=== PATIENT | female | born 1995 | race Caucasian/White ===

== ENCOUNTER → 2017-12-27 12:05 | Outpatient (CLI) | payer OTHER, SELFPAY ==
--- NOTE | 2017-12-27 12:14 | DI.US.S_ITS ---
PROCEDURE: US PELVIC COMPLETE INDICATIONS: FOLLOW-UP OVARIAN CYST TECHNIQUE: Real-time scanning was performed of the pelvic organs, with image documentation. Additional endovaginal scanning was necessary due to incomplete visualization of the adnexal and endometrial structures by transabdominal scanning. COMPARISON: Outside Facility, , US PELVIC, 09/10/2016, 13:13. [facility], , US PELVIC COMPLETE, 11/20/2017, 10:18. FINDINGS: Transabdominal scanning: Limited scanning through the kidneys shows no hydronephrosis. No pathologic free abdominal or pelvic fluid. Endovaginal scanning: Uterus: Uterus is normal in size at 7.1 x 3.5 x 5.2 cm. The endometrium measures 4.5 mm in combined thickness. IUD in expected position. Ovaries: Normal bilaterally and the previously visualized left complex ovarian cyst has resolved. IMPRESSION: Resolved complex left ovarian cyst. Dictated by: Arcenio Prince [facility] Interpreted: Rashel Ramirez MD on 12/27/2017 at 13:27 Approved by: Rashel Ramirez M.D. on 12/27/2017 at 14:18
== END ==
PROVIDERS: PCP Family Medicine; Visit Provider Family Medicine
DX: N83.292 Other ovarian cyst, left side (principal)
CPT/HCPCS: 76856

== ENCOUNTER → 2018-05-29 10:03 | Outpatient (CLI) | payer OTHER, SELFPAY ==
[2018-05-29 11:41] LABS: Add Manual Diff / Slide Review NO; Basophils Percent Auto 0.3 % (0-2); Hematocrit 38.2 % (36-46); Lymphocytes Percent Auto 22.2 % (25-40); Mean Corpuscular Hemoglobin 30.7 PG (26-34); Mean Corpuscular Volume 90.3 fL (80-100); Monocytes Percent Auto 6.1 % (3-14); Neutrophils Absolute Auto 4500 /uL (3000-5900); Neutrophils Percent Auto 67.4 % (50-75); Platelet Count 244 X10^3/uL (150-400); Red Blood Cell Count 4.23 X10^6/uL (4.0-5.2); Red Cell Distribution Width 12.4 % (11.6-14.8); White Blood Cell Count 6.6 X10^3/uL (4.5-11.0)
[2018-05-29 13:51] LABS: TSH w/ Reflex to FT4 1.41 uIU/mL (0.47-4.68)
== END ==
PROVIDERS: PCP Family Medicine; Visit Provider Family Medicine
DX: R53.83 Other fatigue (principal); R68.89 Other general symptoms and signs
CPT/HCPCS: 36415; 84443; 85025

== ENCOUNTER → 2018-11-05 18:22 | Outpatient (REF) | payer OTHER, SELFPAY ==
[2018-11-05 20:29] LABS: Urine N gonorrhoeae NOT DETECTED
[2018-11-05 20:56] LABS: Urine Chlamydia NOT DETECTED
== END ==
LOC: LAB 18:22
PROVIDERS: PCP Family Medicine; Visit Provider Registered Nurse
DX: Z11.3 Encounter for screening for infections with a predominantly sexual mode of transmission (principal)
CPT/HCPCS: 87491; 87591

== ENCOUNTER → 2018-11-13 14:53 | Outpatient (CLI) | payer OTHER, SELFPAY ==
--- NOTE | 2018-11-13 14:55 | DI.US.S_ITS ---
PROCEDURE: US PELVIC COMPLETE INDICATIONS: PELVIC PAIN TECHNIQUE: Real-time scanning was performed of the pelvic organs, with image documentation. Additional endovaginal scanning was necessary due to incomplete visualization of the adnexal and endometrial structures by transabdominal scanning. COMPARISON: [facility], PELVIC COMPLETE, 12/27/2017, 12:32. [facility], PELVIC COMPLETE, 11/20/2017, 10:18. Outside Facility, , US PELVIC, 09/10/2016, 13:13. FINDINGS: Transabdominal scanning: Limited scanning through the kidneys shows no hydronephrosis. No pathologic free abdominal or pelvic fluid. Endovaginal scanning: Uterus: Uterus is normal in size at 8.2 x 3.5 x 5.3 cm. The endometrium measures 3.6 mm in combined thickness. Intrauterine device in expected position. Ovaries: Normal ovaries measure 4.6 x 2.5 x 2.5 cm on the right and 3.8 x 1.5 x 3.1 cm on the left. Prominent gas-filled bowel noted within the midline of the abdomen superior to the bladder. IMPRESSION: No source for pelvic pain identified. Dictated by: Arcenio Prince [facility] Interpreted: Shin Christy MD on 11/13/2018 at 16:19 Approved by: Shin Christy M.D. on 11/13/2018 at 17:38
== END ==
PROVIDERS: PCP Family Medicine; Visit Provider Registered Nurse
DX: R10.2 Pelvic and perineal pain (principal)
CPT/HCPCS: 76830; 76856

== ENCOUNTER 2019-02-01 19:14 | Emergency (ER) | payer OTHER, SELFPAY ==
[2019-02-01 19:17] VITALS: BP 119/78; PULSE 68; RESP 12; TEMP 36.6; O2SAT 98; BMI 25.0
--- NOTE | 2019-02-01 19:22 | DI.RAD.S_ITS ---
PROCEDURE: XR WRIST RT MIN 3V INDICATIONS: right wrist pain TECHNIQUE: 4 views of the wrist were acquired. COMPARISON: None. FINDINGS: Bones: No fractures or dislocations. No suspicious bony lesions. Scaphoid view: Scaphoid is intact Soft tissues: No suspicious soft tissue calcifications. IMPRESSION: No fracture. No osseous lesion. If there are persistent symptoms or clinical suspicion for pathology, then repeat radiographs in 7-10 days or advanced imaging (CT, MRI or bone scan) should be considered for further evaluation. Dictated by: Theresa Little MD, PhD on 02/01/2019 at 19:45 Approved by: Theresa Little MD, PhD on 02/01/2019 at 19:46
--- NOTE | 2019-02-01 20:25 | ED.UPPEXIN ---
HPI - Extremity Injury (Upper) <RANJIT Das - Last Filed: 02/01/19 20:48> General Chief Complaint: Extremity Injury, Upper Stated Complaint: pain in right wrist Time Seen by Provider: 02/01/19 19:49 Source: patient Mode of arrival: ambulatory Limitations: no limitations History of Present Illness HPI narrative: The patient is a 23-year-old female former smoker with history of right wrist sprain who presents with a chief complaint of right wrist pain. She states she was lifting a 25 lb bag of care it is on Monday and felt pain just below her pinky finger. She denies any numbness or tingling. She denies any weakness. She states it hurts to rotate her wrist. She has not followed up with a primary care provider. She has taken the occasional wjhl-tze-mhxphwq pain medication, last dose ibuprofen last night. Related Data Previous Rx's Medication Instructions Recorded sumatriptan 50 mg tablet 50 mg PO Q2H PRN #20 tab 11/05/18 amitriptyline 10 mg tablet 20 mg PO BEDTIME #30 tab 11/15/18 norethindrone acetate 1 mg-ethinyl 1 tab PO DAILY #63 tab 11/15/18 estradiol 20 mcg tablet escitalopram 10 mg tablet 15 mg PO DAILY #45 tab 12/21/18 Allergies Allergy/AdvReac Type Severity Reaction Status Date / Time meloxicam [MELOXICAM] Allergy Intermediate Verified 02/01/19 19:21 naproxen [From NAPROSYN] Allergy Intermediate Verified 02/01/19 19:21 miconazole [From MONISTAT 3] Allergy Mild Verified 02/01/19 19:21 skin cleanser combination Allergy Mild Verified 02/01/19 19:21 no.17 [From MONISTAT 3] shrimp [SHRIMP] Allergy Unknown hives Verified 02/01/19 19:21 Sulfa (Sulfonamide AdvReac Mild VOMITING/DANIEL Verified 02/01/19 19:21 Antibiotics) Review of Systems <RANJIT Das - Last Filed: 02/01/19 20:48> Review of Systems GENERAL: Denies chills, fatigue, malaise, fever, sweats. HEENT: Denies sinus pain, ear pain, sore throat, difficulty swallowing, dizziness. RESPIRATORY: Denies dyspnea, cough, wheezing, hemoptysis, sputum. CARDIOVASCULAR: Denies chest pain, palpitations, orthopnea, edema, GASTROINTESTINAL: Denies nausea, vomiting, abdominal pain, diarrhea, constipation, melena. : Denies dysuria, frequency, incontinence, hematuria, urinary retention. MUSCULOSKELETAL: See HPI SKIN: Denies rash, skin lesions, or other NEUROLOGIC: Denies weakness, headache, numbness, change in speech, confusion, seizures, incoordination. PSYCHIATRIC: No concerning psychosocial issues. 12 point review of systems is negative except for those stated above PFSH <RANJIT Das - Last Filed: 02/01/19 20:48> Medical History Depression (Chronic) History of vaginal delivery (Resolved) Social History Smoking Status: Former smoker alcohol intake: current substance use type: does not use Exam <RANJIT Das - Last Filed: 02/01/19 20:48> Narrative Exam Narrative: GENERAL: This is a well-nourished, well-developed patient, in no acute distress HEAD: Atraumatic. Normocephalic. No temporal or scalp tenderness. EYES: Pupils equal round and reactive. Extraocular motions intact. No scleral icterus. No injection or drainage. ENT: Nose without bleeding, purulent drainage or septal hematoma. Throat without erythema, tonsillar hypertrophy or exudate. Uvula midline. Airway patent. NECK: Trachea midline. No JVD or lymphadenopathy. Supple, nontender, no meningeal signs. CARDIOVASCULAR: Regular rate and rhythm RESPIRATORY: No cough. No increased respiratory effort. No accessory muscle use. EXTREMITIES: Pain to palpation distal to 5th digit on right wrist. Patient is able to pronate and supinate forearm, flex and extend wrist. Patient has pain on rotation of wrist capillary refill less than 2 seconds all fingers right hand. Positive radial pulse. BACK: Nontender without deformity or crepitance. No flank tenderness. NEURO: No erythema or ecchymosis noted right wrist. SKIN: No rash or erythema. Initial Vital Signs Initial Vital Signs: Vital Signs Temperature 97.8 F 02/01/19 19:17 Pulse Rate 68 02/01/19 19:17 Respiratory Rate 12 02/01/19 19:17 Blood Pressure 119/78 02/01/19 19:17 Pulse Oximetry 98 02/01/19 19:17 <Ed Rivera MD - Last Filed: 02/02/19 05:20> Initial Vital Signs Initial Vital Signs: Vital Signs Temperature 97.8 F 02/01/19 19:17 Pulse Rate 68 02/01/19 19:17 Respiratory Rate 12 02/01/19 19:17 Blood Pressure 119/78 02/01/19 19:17 Pulse Oximetry 98 02/01/19 19:17 Procedures <RANJIT Das - Last Filed: 02/01/19 20:48> Orthopedic Splinting/Casting Injury #1: Side: right Upper Extremity Injury Location: wrist Upper Extremity Immobilizer: wrist splint (Velcro wrist splint) Post splinting neuro exam: intact Post splinting vascular exam: intact Placed by: Nursing Course <RANJIT Das - Last Filed: 02/01/19 20:48> Orders Ordered: ED Orders 02/01/19 19:22 XR wrist RT min 3V Stat Vital Signs - 8 hr 02/01/19 19:17 Temperature 97.8 F Pulse Rate 68 Respiratory Rate 12 Blood Pressure 119/78 Pulse Oximetry 98 <Ed Rivera MD - Last Filed: 02/02/19 05:20> Orders Ordered: ED Orders 02/01/19 19:22 XR wrist RT min 3V Stat Vital Signs - 8 hr 02/01/19 19:17 Temperature 97.8 F Pulse Rate 68 Respiratory Rate 12 Blood Pressure 119/78 Pulse Oximetry 98 MDM - Extremity Injury (Upper) <RANJIT Das - Last Filed: 02/01/19 20:48> Imaging Data Wrist x-ray: Radiologist's impression: Emi Paniagua 23 F [address] [address] XRay Report Signed Patient: ArceliaEmi [facility]#: [id number] : 1995Acct:[id number] Age/Sex: 23 / FDate of Service: 02/01/19 Loc: ED Accession Number: [id number] Procedure: XR wrist RT min 3V Ordering Provider: Ed Rivera MD PROCEDURE: XR WRIST RT MIN 3V INDICATIONS: right wrist pain TECHNIQUE: 4 views of the wrist were acquired. COMPARISON: None. FINDINGS: Bones: No fractures or dislocations. No suspicious bony lesions. Scaphoid view: Scaphoid is intact Soft tissues: No suspicious soft tissue calcifications. IMPRESSION: No fracture. No osseous lesion. If there are persistent symptoms or clinical suspicion for pathology, then repeat radiographs in 7-10 days or advanced imaging (CT, MRI or bone scan) should be considered for further evaluation. Dictated by: Theresa Little MD, PhD on 02/01/2019 at 19:45 Approved by: Theresa Little MD, PhD on 02/01/2019 at 19:46 [facility] Narrative Medical decision making narrative: The patient is a 23-year-old female presents with a chief complaint of wrist pain. She has a negative fracture. Exam indicates strain. I encouraged rest ice compression elevation as well as cpqm-ynh-gkhajtl medications as needed and able. I did give her a note for decreased lifting on that side. Encouraged follow-up with a [facility] provider. She is neurovascularly intact. The patient does request an MRI for her wrist in the ER, which I stated would have to go through L&I or a different provider. No questions or concerns upon discharge. Discharge Plan Departure Patient Disposition: Home Clinical Impression: Sprain and strain of wrist Discharge Date/Time: 02/01/19 20:40 Interventions: ED Discharge Assessment Last Done: 02/01/19 20:41 Instructions: DI for Wrist Sprain, How To Perform RICE (Rest, Ice, Compress, Elevate) Activity Restrictions/Additional Instructions: Your wrist has no fracture. Please continue chel-pfv-rediplu medications as Needed and able. Please use rest ice compression elevation. Please follow up with her primary care provider or contact [facility] for a follow-up provider. Please come back to the ER for any acute concerns such as decreased circulation to your fingers. Prescriptions: No Action sumatriptan succinate 50 mg tablet 50 mg PO Q2H PRN (Reason: migraine headache) Qty: 20 RF: 2 escitalopram oxalate 10 mg tablet 15 mg PO DAILY Qty: 45 RF: 2 norethindrone ac-eth estradiol 1-20 mg-mcg tablet 1 tab PO DAILY Qty: 63 RF: 3 amitriptyline 10 mg tablet 20 mg PO BEDTIME Qty: 30 RF: 6 Referrals: Lita Neal MD [Primary Care Provider] - Stand Alone Forms: Work Release Note <Ed Rivera MD - Last Filed: 02/02/19 05:20> Cosign ED Attending Cosignature Attestation: I was present in the ER at the time of this patient's care. I was available for consultation or to evaluate the patient directly. I agree with the evaluation, assessment and treatment plan.
--- NOTE | 2019-02-01 20:28 | ED_ITS ---
HPI - Extremity Injury (Upper) <RANJIT Das - Last Filed: 02/01/19 20:48> General Chief Complaint: Extremity Injury, Upper Stated Complaint: pain in right wrist Time Seen by Provider: 02/01/19 19:49 Source: patient Mode of arrival: ambulatory Limitations: no limitations History of Present Illness HPI narrative: The patient is a 23-year-old female former smoker with history of right wrist sprain who presents with a chief complaint of right wrist pain. She states she was lifting a 25 lb bag of care it is on Monday and felt pain just below her pinky finger. She denies any numbness or tingling. She denies any weakness. She states it hurts to rotate her wrist. She has not followed up with a primary care provider. She has taken the occasional iihb-zeq-qumjgjf pain medication, last dose ibuprofen last night. Related Data Previous Rx's Medication Instructions Recorded sumatriptan 50 mg tablet 50 mg PO Q2H PRN #20 tab 11/05/18 amitriptyline 10 mg tablet 20 mg PO BEDTIME #30 tab 11/15/18 norethindrone acetate 1 mg-ethinyl 1 tab PO DAILY #63 tab 11/15/18 estradiol 20 mcg tablet escitalopram 10 mg tablet 15 mg PO DAILY #45 tab 12/21/18 Allergies Allergy/AdvReac Type Severity Reaction Status Date / Time meloxicam [MELOXICAM] Allergy Intermediate Verified 02/01/19 19:21 naproxen [From NAPROSYN] Allergy Intermediate Verified 02/01/19 19:21 miconazole [From MONISTAT 3] Allergy Mild Verified 02/01/19 19:21 skin cleanser combination Allergy Mild Verified 02/01/19 19:21 no.17 [From MONISTAT 3] shrimp [SHRIMP] Allergy Unknown hives Verified 02/01/19 19:21 Sulfa (Sulfonamide AdvReac Mild VOMITING/DANIEL Verified 02/01/19 19:21 Antibiotics) Review of Systems <RANJIT Das - Last Filed: 02/01/19 20:48> Review of Systems GENERAL: Denies chills, fatigue, malaise, fever, sweats. HEENT: Denies sinus pain, ear pain, sore throat, difficulty swallowing, dizziness. RESPIRATORY: Denies dyspnea, cough, wheezing, hemoptysis, sputum. CARDIOVASCULAR: Denies chest pain, palpitations, orthopnea, edema, GASTROINTESTINAL: Denies nausea, vomiting, abdominal pain, diarrhea, constipation, melena. : Denies dysuria, frequency, incontinence, hematuria, urinary retention. MUSCULOSKELETAL: See HPI SKIN: Denies rash, skin lesions, or other NEUROLOGIC: Denies weakness, headache, numbness, change in speech, confusion, seizures, incoordination. PSYCHIATRIC: No concerning psychosocial issues. 12 point review of systems is negative except for those stated above PFSH <RANJIT Das - Last Filed: 02/01/19 20:48> Medical History Depression (Chronic) History of vaginal delivery (Resolved) Social History Smoking Status: Former smoker alcohol intake: current substance use type: does not use Exam <RANJIT Das - Last Filed: 02/01/19 20:48> Narrative Exam Narrative: GENERAL: This is a well-nourished, well-developed patient, in no acute distress HEAD: Atraumatic. Normocephalic. No temporal or scalp tenderness. EYES: Pupils equal round and reactive. Extraocular motions intact. No scleral icterus. No injection or drainage. ENT: Nose without bleeding, purulent drainage or septal hematoma. Throat without erythema, tonsillar hypertrophy or exudate. Uvula midline. Airway patent. NECK: Trachea midline. No JVD or lymphadenopathy. Supple, nontender, no meningeal signs. CARDIOVASCULAR: Regular rate and rhythm RESPIRATORY: No cough. No increased respiratory effort. No accessory muscle use. EXTREMITIES: Pain to palpation distal to 5th digit on right wrist. Patient is able to pronate and supinate forearm, flex and extend wrist. Patient has pain on rotation of wrist capillary refill less than 2 seconds all fingers right hand. Positive radial pulse. BACK: Nontender without deformity or crepitance. No flank tenderness. NEURO: No erythema or ecchymosis noted right wrist. SKIN: No rash or erythema. Initial Vital Signs Initial Vital Signs: Vital Signs Temperature 97.8 F 02/01/19 19:17 Pulse Rate 68 02/01/19 19:17 Respiratory Rate 12 02/01/19 19:17 Blood Pressure 119/78 02/01/19 19:17 Pulse Oximetry 98 02/01/19 19:17 <Ed Rivera MD - Last Filed: 02/02/19 05:20> Initial Vital Signs Initial Vital Signs: Vital Signs Temperature 97.8 F 02/01/19 19:17 Pulse Rate 68 02/01/19 19:17 Respiratory Rate 12 02/01/19 19:17 Blood Pressure 119/78 02/01/19 19:17 Pulse Oximetry 98 02/01/19 19:17 Procedures <RANJIT Das - Last Filed: 02/01/19 20:48> Orthopedic Splinting/Casting Injury #1: Side: right Upper Extremity Injury Location: wrist Upper Extremity Immobilizer: wrist splint (Velcro wrist splint) Post splinting neuro exam: intact Post splinting vascular exam: intact Placed by: Nursing Course <RANJIT Das - Last Filed: 02/01/19 20:48> Orders Ordered: ED Orders 02/01/19 19:22 XR wrist RT min 3V Stat Vital Signs - 8 hr 02/01/19 19:17 Temperature 97.8 F Pulse Rate 68 Respiratory Rate 12 Blood Pressure 119/78 Pulse Oximetry 98 <Ed Rivera MD - Last Filed: 02/02/19 05:20> Orders Ordered: ED Orders 02/01/19 19:22 XR wrist RT min 3V Stat Vital Signs - 8 hr 02/01/19 19:17 Temperature 97.8 F Pulse Rate 68 Respiratory Rate 12 Blood Pressure 119/78 Pulse Oximetry 98 MDM - Extremity Injury (Upper) <RANJIT Das - Last Filed: 02/01/19 20:48> Imaging Data Wrist x-ray: Radiologist's impression: Emi Paniagua 23 F [address] [address] XRay Report Signed Patient: ArceliaEmi [facility]#: [id number] : 1995Acct:[id number] Age/Sex: 23 / FDate of Service: 02/01/19 Loc: ED Accession Number: [id number] Procedure: XR wrist RT min 3V Ordering Provider: Ed Rivera MD PROCEDURE: XR WRIST RT MIN 3V INDICATIONS: right wrist pain TECHNIQUE: 4 views of the wrist were acquired. COMPARISON: None. FINDINGS: Bones: No fractures or dislocations. No suspicious bony lesions. Scaphoid view: Scaphoid is intact Soft tissues: No suspicious soft tissue calcifications. IMPRESSION: No fracture. No osseous lesion. If there are persistent symptoms or clinical suspicion for pathology, then repeat radiographs in 7-10 days or advanced imaging (CT, MRI or bone scan) should be considered for further evaluation. Dictated by: Theresa Little MD, PhD on 02/01/2019 at 19:45 Approved by: Theresa Little MD, PhD on 02/01/2019 at 19:46 [facility] Narrative Medical decision making narrative: The patient is a 23-year-old female presents with a chief complaint of wrist pain. She has a negative fracture. Exam indicates strain. I encouraged rest ice compression elevation as well as dfau-xde-vmecjuz medications as needed and able. I did give her a note for decreased lifting on that side. Encouraged follow-up with a [facility] provider. She is neurovascularly intact. The patient does request an MRI for her wrist in the ER, which I stated would have to go through L&I or a different provider. No questions or concerns upon discharge. Discharge Plan Departure Patient Disposition: Home Clinical Impression: Sprain and strain of wrist Discharge Date/Time: 02/01/19 20:40 Interventions: ED Discharge Assessment Last Done: 02/01/19 20:41 Instructions: DI for Wrist Sprain, How To Perform RICE (Rest, Ice, Compress, Elevate) Activity Restrictions/Additional Instructions: Your wrist has no fracture. Please continue wkit-xoj-asbwakg medications as Needed and able. Please use rest ice compression elevation. Please follow up with her primary care provider or contact [facility] for a follow-up provider. Please come back to the ER for any acute concerns such as decreased circulation to your fingers. Prescriptions: No Action sumatriptan succinate 50 mg tablet 50 mg PO Q2H PRN (Reason: migraine headache) Qty: 20 RF: 2 escitalopram oxalate 10 mg tablet 15 mg PO DAILY Qty: 45 RF: 2 norethindrone ac-eth estradiol 1-20 mg-mcg tablet 1 tab PO DAILY Qty: 63 RF: 3 amitriptyline 10 mg tablet 20 mg PO BEDTIME Qty: 30 RF: 6 Referrals: Lita Neal MD [Primary Care Provider] - Stand Alone Forms: Work Release Note <Ed Rivera MD - Last Filed: 02/02/19 05:20> Cosign ED Attending Cosignature Attestation: I was present in the ER at the time of this patient's care. I was available for consultation or to evaluate the patient directly. I agree with the evaluation, assessment and treatment plan.
== END 2019-02-01 20:40 | disposition home or self-care (01) ==
PROVIDERS: Emergency Provider Nurse Practitioner Family; PCP Family Medicine
DX: S63.501A Unspecified sprain of right wrist, initial encounter (principal); X50.0XXA Overexertion from strenuous movement or load, initial encounter; Y99.0 Civilian activity done for income or pay
CPT/HCPCS: 29260; 73110; 99282; 99283

== ENCOUNTER → 2019-05-18 10:12 | Outpatient (CLI) | payer OTHER, SELFPAY ==
[2019-05-18 12:17] LABS: Hematocrit 37.6 % (36-46); Hemoglobin 12.9 g/dL (12.0-16.0); Mean Corpuscular HGB Conc 34.2 % (30-36); Mean Corpuscular Hemoglobin 30.3 PG (26-34); Mean Corpuscular Volume 88.5 fL (80-100); Platelet Count 254 X10^3/uL (150-400); Red Blood Cell Count 4.25 X10^6/uL (4.0-5.2); Red Cell Distribution Width 13.1 % (11.6-14.8); White Blood Cell Count 4.8 X10^3/uL (4.5-11.0)
[2019-05-18 12:28] LABS: Alanine Aminotransferase 19 IU/L (<35); Albumin 4.3 g/dL (3.5-5.0); Albumin Globulin Ratio 1.6 (1.0-2.8); Alkaline Phosphatase 48 U/L (38-126); Aspartate Aminotransferase 25 IU/L (14-36); Bilirubin Total 0.6 mg/dL (0.2-1.3); Blood Urea Nitrogen 12 mg/dL (7-17); Calcium 8.8 mg/dL (8.4-10.2); Carbon Dioxide 29 mmol/L (22-32); Chloride 102 mmol/L (98-107); Estimated Glomerular Filt Rate > 60.0 mL/min (>60); Globulin 2.7 g/dL (1.7-4.1); Glucose 78 mg/dL (70-100); HEMOLYSIS < 15 (0-50); Potassium 4.1 mmol/L (3.4-5.1); Sodium 139 mmol/L (137-145)
[2019-05-18 13:04] LABS: TSH w/ Reflex to FT4 1.92 uIU/mL (0.47-4.68)
[2019-05-18 13:27] LABS: Folate 14.4 ng/mL (2.76-20.0); Vitamin B12 390 pg/mL (239-931)
== END ==
PROVIDERS: PCP Family Medicine; Visit Provider Nurse Practitioner Family
DX: Z00.00 Encounter for general adult medical examination without abnormal findings (principal); R53.83 Other fatigue
CPT/HCPCS: 36415; 80053; 82607; 82746; 84443; 85027

== ENCOUNTER → 2019-08-02 11:49 | Outpatient (CLI) | payer OTHER, SELFPAY | PROVIDERS: PCP Nurse Practitioner Family; Visit Provider Nurse Practitioner Family | DX: R30.0 Dysuria (principal) | CPT/HCPCS: 87210 ==

== ENCOUNTER 2019-12-12 17:03 | Emergency (ER) | payer OTHER, SELFPAY ==
[2019-12-12 17:20] VITALS: BP 122/72; PULSE 80; RESP 14; TEMP 36.6; O2SAT 100; BMI 27.3
[2019-12-12 18:23] LABS: Bacteria Urine Occasional (0-1); Culture Indicated Urine Specimen Cultured; RBC Urine 0-1/HPF (0-5/HPF); Squamous Epithelial Cell Urine 1-5 /HPF (0-5/HPF); WBC Urine 5-10/HPF (0-5/HPF)
--- NOTE | 2019-12-12 19:39 | ED_ITS ---
HPI - Female Genitourinary <Eleni Quintana PA-C - Last Filed: 12/12/19 23:10> General Chief complaint: Urogenital-Female Stated complaint: Bladder or kidney infection Time Seen by Provider: 12/12/19 19:36 Source: patient Mode of arrival: Ambulatory Limitations: no limitations History of Present Illness HPI Narrative: This is a well-appearing 24-year-old who presents to the emergency department with bladder pain and some bilateral flank pain worse on the left that is been going on since yesterday morning. She has a history notable for frequent UTIs including 3 already this year, including a pyelonephritis 2 months ago she also had pyelonephritis last year. She reports she used to see a urologist and historically has had many many UTIs each year, however everything had seemed to be improving but this year has been worse. This feels exactly like her UTIs when they are early on to her. She has been eating and drinking normally, she has some mild dysuria usually in the mornings when she wakes up beginning yesterday morning and then also today. She also describes discomfort yesterday with walking specifically in her bladder and a little bit in her kidney area on both sides, but more on the left. Patient also does state that she uses a patch for control and has been off it this because it irritates her skin she is sexually active and wants to make sure she is not . She denies nausea, vomiting, diarrhea, upper abdominal pain, or any other symptoms. MD Complaint: dysuria and UTI Onset (ago): day(s) (1) Location: suprapubic and other Female Urogenital Radiation: L Flank and R Flank Severity: moderate Severity scale (1-10): 3 Quality: Aching Duration: constant Relieving factors: none Exacerbating factors: movement Urinary symptoms: Dysuria and Flank Pain Date of Last Menstrual Period: 11/18/19 Associated symptoms: denies other symptoms Related Data Previous Rx's Medication Instructions Recorded norelgestromin 150 mcg-e.estradiol 1 patch TRANSDERMAL QWEEK #3 each 05/14/19 35 mcg/24 hr weekly transderm patch buspirone 5 mg tablet 5 mg PO ONCE #90 tab 08/02/19 escitalopram oxalate 20 mg tablet 20 mg PO DAILY #90 tab 09/12/19 ciprofloxacin HCl 500 mg PO BID #14 tab 12/12/19 Allergies Allergy/AdvReac Type Severity Reaction Status Date / Time meloxicam [MELOXICAM] Allergy Intermediate Verified 12/12/19 17:24 naproxen [From NAPROSYN] Allergy Intermediate Verified 12/12/19 17:24 miconazole [From MONISTAT 3] Allergy Mild Verified 12/12/19 17:24 skin cleanser combination Allergy Mild Verified 12/12/19 17:24 no.17 [From MONISTAT 3] shrimp [SHRIMP] Allergy Unknown hives Verified 12/12/19 17:24 Sulfa (Sulfonamide AdvReac Mild VOMITING/DANIEL Verified 12/12/19 17:24 Antibiotics) Review of Systems <Eleni Quintana PA-C - Last Filed: 12/12/19 23:10> Review of Systems Narrative: GENERAL: Denies chills, fatigue, malaise, fever, sweats. HEENT: Denies sinus pain, ear pain, sore throat, difficulty swallowing, dizziness. RESPIRATORY: Denies dyspnea, cough, wheezing, hemoptysis, sputum. CARDIOVASCULAR: Denies chest pain, palpitations, orthopnea, edema, GASTROINTESTINAL: Denies nausea, vomiting, abdominal pain, diarrhea, constipation, melena. : POSITIVE for dysuria, frequency, and bilateral flank pain,Negative for: incontinence, hematuria, urinary retention. MUSCULOSKELETAL: denies weakness, joint pain, or bony pain SKIN: Denies rash, skin lesions, or other NEUROLOGIC: Denies weakness, headache, numbness, change in speech, confusion, seizures, incoordination. PSYCHIATRIC: No concerning psychosocial issues. 12 point review of systems is negative except for those stated above Patient History <Eleni Quintana PA-C - Last Filed: 12/12/19 23:10> Medical History Anxiety (Acute) Depression (Chronic) History of vaginal delivery (Resolved) alcohol intake frequency: holidays/special occasions only Substance Use Type: does not use Exam <Eleni Quintana PA-C - Last Filed: 12/12/19 23:10> Narrative Exam Narrative: GENERAL: 24 year old patient appears stated age. Well-nourished, well-developed patient, in mild distress. HEAD: Atraumatic. Normocephalic. EYES: Pupils equal round and reactive. Extraocular motions intact. No scleral icterus. No injection or drainage. ENT: Nose without bleeding, purulent drainage. Throat without erythema, tonsillar hypertrophy or exudate. Airway patent. NECK: Trachea midline. Non tender CARDIOVASCULAR: Regular rate and rhythm without murmurs, gallops, or rubs. RESPIRATORY: Clear to auscultation. Breath sounds equal bilaterally. No wheezes, rales, or rhonchi. GASTROINTESTINAL: Abdomen soft, nondistended, there is suprapubic tenderness; abdomen is otherwise nontender. EXTREMITIES: No edema or joint tenderness. BACK: Nontender without deformity or crepitance. there is bilateral flank tenderness/CVA tenderness most pronounced on the left. NEURO: AOx3. SKIN: No rash or erythema of visible areas Initial Vital Signs Initial Vital Signs: Vital Signs Temperature 97.9 F 12/12/19 17:20 Pulse Rate 80 12/12/19 17:20 Respiratory Rate 14 12/12/19 17:20 Blood Pressure 122/72 12/12/19 17:20 Pulse Oximetry 100 12/12/19 17:20 <Ed Rivera MD - Last Filed: 12/13/19 01:20> Initial Vital Signs Initial Vital Signs: Vital Signs Temperature 97.9 F 12/12/19 17:20 Pulse Rate 80 12/12/19 17:20 Respiratory Rate 14 12/12/19 17:20 Blood Pressure 122/72 12/12/19 17:20 Pulse Oximetry 100 12/12/19 17:20 Course <Eleni Quintana PA-C - Last Filed: 12/12/19 23:10> Orders Ordered: ED Orders 12/12/19 17:23 Test Urine Stat Urine Culture Stat Urine Microscopic Stat 12/12/19 20:00 Complete Blood Count AUTO DIFF Stat Comprehensive Metabolic Panel Stat Discontinued Medications Ceftriaxone Sodium/Dextrose (Rocephin) 1 gm in 50 mls @ 100 mls/hr IV NOW ONE Stop: 12/12/19 21:09 Last Infusion: 12/12/19 22:56 Dose: 0 mls/hr Documented by: Admin: 12/12/19 22:20 Dose: 100 mls/hr Documented by: ALDO Vital Signs Vital signs: Vital Signs - 8 hr 12/12/19 17:20 12/12/19 20:03 12/12/19 22:48 Temperature 97.9 F Pulse Rate 80 72 84 Respiratory Rate 14 15 12 Blood Pressure 122/72 Blood Pressure [Left Arm] 134/72 112/61 Pulse Oximetry 100 98 100 12/12/19 22:57 Temperature Pulse Rate 89 Respiratory Rate 12 Blood Pressure 112/61 Blood Pressure [Left Arm] Pulse Oximetry 99 <Ed Rivera MD - Last Filed: 12/13/19 01:20> Orders Ordered: ED Orders 12/12/19 17:23 Test Urine Stat Urine Culture Stat Urine Microscopic Stat 12/12/19 20:00 Complete Blood Count AUTO DIFF Stat Comprehensive Metabolic Panel Stat Discontinued Medications Ceftriaxone Sodium/Dextrose (Rocephin) 1 gm in 50 mls @ 100 mls/hr IV NOW ONE Stop: 12/12/19 21:09 Last Infusion: 12/12/19 22:56 Dose: 0 mls/hr Documented by: Admin: 12/12/19 22:20 Dose: 100 mls/hr Documented by: ALDO Vital Signs Vital signs: Vital Signs - 8 hr 12/12/19 17:20 12/12/19 20:03 12/12/19 22:48 Temperature 97.9 F Pulse Rate 80 72 84 Respiratory Rate 14 15 12 Blood Pressure 122/72 Blood Pressure [Left Arm] 134/72 112/61 Pulse Oximetry 100 98 100 12/12/19 22:57 Temperature Pulse Rate 89 Respiratory Rate 12 Blood Pressure 112/61 Blood Pressure [Left Arm] Pulse Oximetry 99 MDM - Female Genitourinary <Eleni Quintana PA-C - Last Filed: 12/12/19 23:10> Lab Data Result diagrams: 12/12/19 20:00 12/12/19 20:00 Labs: Lab Results 12/12/19 12/12/19 12/12/19 Range/Units 17:23 17:23 20:00 WBC 6.8 (4.5-11.0) X10^3/uL RBC 4.18 (4.0-5.2) X10^6/uL Hgb 12.8 (12.0-16.0) g/dL Hct 36.8 (36-46) % MCV 88.1 (80-100) fL MCH 30.5 (26-34) PG MCHC 34.6 (30-36) % RDW 12.4 (11.6-14.8) % Plt Count 256 (150-400) X10^3/uL Neut % (Auto) 59.2 (50-75) % Lymph % (Auto) 33.1 (25-40) % [place] % (Auto) 5.2 (3-14) % Eos % (Auto) 2.1 (2-4) % Baso % (Auto) 0.4 (0-2) % Neut # (Auto) 4000 (8966-6871) /uL Lymph # (Auto) 2300 (5347-3126) /uL [place] # (Auto) 400 (0-900) /uL Eos # (Auto) 100 (0-450) /uL Baso # (Auto) 0 (0-100) /uL Sodium (137-145) mmol/L Potassium (3.4-5.1) mmol/L Chloride (98-107) mmol/L Carbon Dioxide (22-32) mmol/L BUN (7-17) mg/dL Creatinine (0.52-1.04) mg/dL Estimated GFR (>60) mL/min BUN/Creatinine Ratio (6-22) Glucose (70-100) mg/dL Calcium (8.4-10.2) mg/dL Total Bilirubin (0.2-1.3) mg/dL AST (14-36) IU/L ALT (<35) IU/L Alkaline Phosphatase (38-126) U/L Total Protein (6.3-8.2) g/dL Albumin (3.5-5.0) g/dL Globulin (1.7-4.1) g/dL Albumin/Globulin Ratio (1.0-2.8) Urine RBC 0-1/hpf (0-5/HPF) Urine WBC 5-10/hpf H (0-5/HPF) Ur Squamous Epith Cells 1-5 /hpf (0-5/HPF) Urine Bacteria Occasional (0-1) (None) Ur Culture Indicated? Specimen cultured Urine Test Negative (Negative) 12/12/19 Range/Units 20:00 WBC (4.5-11.0) X10^3/uL RBC (4.0-5.2) X10^6/uL Hgb (12.0-16.0) g/dL Hct (36-46) % MCV (80-100) fL MCH (26-34) PG MCHC (30-36) % RDW (11.6-14.8) % Plt Count (150-400) X10^3/uL Neut % (Auto) (50-75) % Lymph % (Auto) (25-40) % [place] % (Auto) (3-14) % Eos % (Auto) (2-4) % Baso % (Auto) (0-2) % Neut # (Auto) (3323-7341) /uL Lymph # (Auto) (0886-0659) /uL [place] # (Auto) (0-900) /uL Eos # (Auto) (0-450) /uL Baso # (Auto) (0-100) /uL Sodium 139 (137-145) mmol/L Potassium 3.6 (3.4-5.1) mmol/L Chloride 105 (98-107) mmol/L Carbon Dioxide 25 (22-32) mmol/L BUN 15 (7-17) mg/dL Creatinine 0.66 (0.52-1.04) mg/dL Estimated GFR > 60.0 (>60) mL/min BUN/Creatinine Ratio 22.7 H (6-22) Glucose 82 (70-100) mg/dL Calcium 9.2 (8.4-10.2) mg/dL Total Bilirubin 0.4 (0.2-1.3) mg/dL AST 28 (14-36) IU/L ALT 20 (<35) IU/L Alkaline Phosphatase 63 (38-126) U/L Total Protein 7.9 (6.3-8.2) g/dL Albumin 4.6 (3.5-5.0) g/dL Globulin 3.3 (1.7-4.1) g/dL Albumin/Globulin Ratio 1.4 (1.0-2.8) Urine RBC (0-5/HPF) Urine WBC (0-5/HPF) Ur Squamous Epith Cells (0-5/HPF) Urine Bacteria (None) Ur Culture Indicated? Urine Test (Negative) Point of Care Testing Test Results Negative Urine Dip Bedside Urine Glucose Negative Bedside Urine Bilirubin - Negative Bedside Urine Ketone - Negative Urine Specific [place] 1.015 Bedside Urine Occult Blood +/- Bedside Urine pH 5.5 Bedside Urine Protein - Negative Bedside Urine Urobilinogen - Negative Bedside Urine Nitrite - Negative Bedside Urine Leukocytes +/- 15 Esterase MDM Narrative Medical decision making narrative: Based on her history and physical exam I am strongly suspicious that this is an early pyelonephritis. Her urine other than having some white blood cells did not definitively show a UTI, however am comfortable treating for pyelo given her history and proceeded with 1 g of ceftriaxone IV in the emergency department and outpatient therapy with ciprofloxacin 500 b.i.d. for 7 days. I am also recommending that she see her urologist again, given the frequency of her recent UTIs and her reported extensive UTI history. I considered ureterolithiasis, appendicitis, cholecystitis, , but I have low suspicion for these or another acute abdominal process as the cause of her discomfort and pain based on her labs, history, and her exam. Suspect she has a urinary tract infection with extension to kidneys. No imaging is obtained. <Ed Rivera MD - Last Filed: 12/13/19 01:20> Lab Data Labs: Lab Results 12/12/19 12/12/19 12/12/19 Range/Units 17:23 17:23 20:00 WBC 6.8 (4.5-11.0) X10^3/uL RBC 4.18 (4.0-5.2) X10^6/uL Hgb 12.8 (12.0-16.0) g/dL Hct 36.8 (36-46) % MCV 88.1 (80-100) fL MCH 30.5 (26-34) PG MCHC 34.6 (30-36) % RDW 12.4 (11.6-14.8) % Plt Count 256 (150-400) X10^3/uL Neut % (Auto) 59.2 (50-75) % Lymph % (Auto) 33.1 (25-40) % [place] % (Auto) 5.2 (3-14) % Eos % (Auto) 2.1 (2-4) % Baso % (Auto) 0.4 (0-2) % Neut # (Auto) 4000 (4044-3329) /uL Lymph # (Auto) 2300 (0981-9137) /uL [place] # (Auto) 400 (0-900) /uL Eos # (Auto) 100 (0-450) /uL Baso # (Auto) 0 (0-100) /uL Sodium (137-145) mmol/L Potassium (3.4-5.1) mmol/L Chloride (98-107) mmol/L Carbon Dioxide (22-32) mmol/L BUN (7-17) mg/dL Creatinine (0.52-1.04) mg/dL Estimated GFR (>60) mL/min BUN/Creatinine Ratio (6-22) Glucose (70-100) mg/dL Calcium (8.4-10.2) mg/dL Total Bilirubin (0.2-1.3) mg/dL AST (14-36) IU/L ALT (<35) IU/L Alkaline Phosphatase (38-126) U/L Total Protein (6.3-8.2) g/dL Albumin (3.5-5.0) g/dL Globulin (1.7-4.1) g/dL Albumin/Globulin Ratio (1.0-2.8) Urine RBC 0-1/hpf (0-5/HPF) Urine WBC 5-10/hpf H (0-5/HPF) Ur Squamous Epith Cells 1-5 /hpf (0-5/HPF) Urine Bacteria Occasional (0-1) (None) Ur Culture Indicated? Specimen cultured Urine Test Negative (Negative) 12/12/19 Range/Units 20:00 WBC (4.5-11.0) X10^3/uL RBC (4.0-5.2) X10^6/uL Hgb (12.0-16.0) g/dL Hct (36-46) % MCV (80-100) fL MCH (26-34) PG MCHC (30-36) % RDW (11.6-14.8) % Plt Count (150-400) X10^3/uL Neut % (Auto) (50-75) % Lymph % (Auto) (25-40) % [place] % (Auto) (3-14) % Eos % (Auto) (2-4) % Baso % (Auto) (0-2) % Neut # (Auto) (9172-2947) /uL Lymph # (Auto) (9799-7583) /uL [place] # (Auto) (0-900) /uL Eos # (Auto) (0-450) /uL Baso # (Auto) (0-100) /uL Sodium 139 (137-145) mmol/L Potassium 3.6 (3.4-5.1) mmol/L Chloride 105 (98-107) mmol/L Carbon Dioxide 25 (22-32) mmol/L BUN 15 (7-17) mg/dL Creatinine 0.66 (0.52-1.04) mg/dL Estimated GFR > 60.0 (>60) mL/min BUN/Creatinine Ratio 22.7 H (6-22) Glucose 82 (70-100) mg/dL Calcium 9.2 (8.4-10.2) mg/dL Total Bilirubin 0.4 (0.2-1.3) mg/dL AST 28 (14-36) IU/L ALT 20 (<35) IU/L Alkaline Phosphatase 63 (38-126) U/L Total Protein 7.9 (6.3-8.2) g/dL Albumin 4.6 (3.5-5.0) g/dL Globulin 3.3 (1.7-4.1) g/dL Albumin/Globulin Ratio 1.4 (1.0-2.8) Urine RBC (0-5/HPF) Urine WBC (0-5/HPF) Ur Squamous Epith Cells (0-5/HPF) Urine Bacteria (None) Ur Culture Indicated? Urine Test (Negative) Point of Care Testing Test Results Negative Urine Dip Bedside Urine Glucose Negative Bedside Urine Bilirubin - Negative Bedside Urine Ketone - Negative Urine Specific [place] 1.015 Bedside Urine Occult Blood +/- Bedside Urine pH 5.5 Bedside Urine Protein - Negative Bedside Urine Urobilinogen - Negative Bedside Urine Nitrite - Negative Bedside Urine Leukocytes +/- 15 Esterase Discharge Plan Departure Patient Disposition: Home Clinical Impression: Complicated urinary tract infection, Bilateral flank pain Discharge Date/Time: 12/12/19 22:59 Instructions: DI for Kidney Infection, DI for Urinary Tract Infection (UTI) Activity Restrictions/Additional Instructions: Thank you for letting us to be part of your care today. There is no evidence of an emergent or life threatening illness at this time, but follow up with your doctor in 1-2 days is recommended nonetheless to continue to rule out serious underlying causes of your symptoms. Please call the office for an appointment. Please return to the Emergency Department for any worsening or persistent symptoms. Please take medications as directed. I have prescribed ciprofloxacin which is a medication that can help address UTI specifically those that affect the kidneys, sent this to your pharmacy in [place] electronically so you should be able to pick it up tomorrow. We also gave you IV antibiotics called ceftriaxone in the emergency department. If he develops any concerning symptoms such as fever, nausea, vomiting, diarrhea increasing abdominal pain inability to tolerate food or water or any other symptoms of concern to you please seek medical care immediately. Prescriptions: New ciprofloxacin HCl 500 mg tablet 500 mg PO BID Qty: 14 RF: 0 No Action escitalopram oxalate 20 mg tablet 20 mg PO DAILY Qty: 90 RF: 0 buspirone 5 mg tablet 5 mg PO ONCE Qty: 90 RF: 0 Xulane 150-35 mcg/24 hr patch weekly 1 patch transdermal QWEEK Qty: 3 RF: 2 Referrals: Lan Marrero DO [Non-Staff] - Lita Neal MD [Primary Care Provider] -
[2019-12-12 20:03] VITALS: BP 134/72; PULSE 72; RESP 15; O2SAT 98
[2019-12-12 20:13] LABS: Add Manual Diff / Slide Review NO; Basophils Absolute Auto 0 /uL (0-100); Basophils Percent Auto 0.4 % (0-2); Eosinophils Absolute Auto 100 /uL (0-450); Eosinophils Percent Auto 2.1 % (2-4); Hematocrit 36.8 % (36-46); Hemoglobin 12.8 g/dL (12.0-16.0); Lymphocytes Absolute Auto 2300 /uL (1100-4500); Lymphocytes Percent Auto 33.1 % (25-40); Mean Corpuscular HGB Conc 34.6 % (30-36); Mean Corpuscular Hemoglobin 30.5 PG (26-34); Mean Corpuscular Volume 88.1 fL (80-100); Monocytes Absolute Auto 400 /uL (0-900); Monocytes Percent Auto 5.2 % (3-14); Neutrophils Absolute Auto 4000 /uL (1500-7000); Neutrophils Percent Auto 59.2 % (50-75); Platelet Count 256 X10^3/uL (150-400); Red Blood Cell Count 4.18 X10^6/uL (4.0-5.2); Red Cell Distribution Width 12.4 % (11.6-14.8); White Blood Cell Count 6.8 X10^3/uL (4.5-11.0)
[2019-12-12 20:23] LABS: Alanine Aminotransferase 20 IU/L (<35); Albumin 4.6 g/dL (3.5-5.0); Albumin Globulin Ratio 1.4 (1.0-2.8); Alkaline Phosphatase 63 U/L (38-126); Aspartate Aminotransferase 28 IU/L (14-36); BUN Creatinine Ratio 22.7 (6-22); Bilirubin Total 0.4 mg/dL (0.2-1.3); Blood Urea Nitrogen 15 mg/dL (7-17); Calcium 9.2 mg/dL (8.4-10.2); Carbon Dioxide 25 mmol/L (22-32); Chloride 105 mmol/L (98-107); Estimated Glomerular Filt Rate > 60.0 mL/min (>60); Globulin 3.3 g/dL (1.7-4.1); Glucose 82 mg/dL (70-100); HEMOLYSIS < 15 (0-50); Potassium 3.6 mmol/L (3.4-5.1); Sodium 139 mmol/L (137-145); Total Protein 7.9 g/dL (6.3-8.2)
[2019-12-12 21:11] LABS: Pregnancy Test Urine Negative (Negative)
[2019-12-12] MEDS: CEFTRIAXONE 1 GM/50 ML FROZ.PIGGY IV (22:20)
[2019-12-12 22:48] VITALS: BP 112/61; PULSE 84; RESP 12; O2SAT 100
[2019-12-12 22:57] VITALS: BP 112/61; PULSE 89; RESP 12; O2SAT 99
== END 2019-12-12 22:59 | disposition home or self-care (01) ==
PROVIDERS: Emergency Medicine; Emergency Provider Student in an Organized Health Care Education/Training Program; PCP Family Medicine
DX: N39.0 Urinary tract infection, site not specified (principal); R10.9 Unspecified abdominal pain
CPT/HCPCS: 80053; 81003; 81015; 81025; 85025; 87086; 96365; 99284

== ENCOUNTER → 2020-02-17 12:18 | Outpatient (CLI) | payer OTHER, SELFPAY ==
[2020-02-17 14:31] LABS: HCG Quantitative /Beta subunit < 2.4 mIU/mL
== END ==
PROVIDERS: PCP Family Medicine; Referring Provider Family Medicine; Visit Provider Family Medicine
DX: N93.9 Abnormal uterine and vaginal bleeding, unspecified (principal); R10.2 Pelvic and perineal pain
CPT/HCPCS: 36415; 84702

== ENCOUNTER → 2020-02-21 08:05 | Outpatient (CLI) | payer OTHER, SELFPAY ==
--- NOTE | 2020-02-21 08:06 | DI.US.S_ITS ---
PROCEDURE: US PELVIC COMPLETE INDICATIONS: abnormal menses, left adnexal pain TECHNIQUE: Real-time scanning was performed of the pelvic organs, with image documentation. Additional endovaginal scanning was necessary due to incomplete visualization of the adnexal and endometrial structures by transabdominal scanning. COMPARISON: [facility], , PELVIC COMPLETE, 11/13/2018, 15:06. [facility], , PELVIC COMPLETE, 12/27/2017, 12:32. FINDINGS: Transabdominal scanning: Limited scanning through the kidneys shows no hydronephrosis. No pathologic free abdominal or pelvic fluid. Endovaginal scanning: Uterus: Uterus is normal in size at all 3.5 x 5.6 x 8.9 cm, anteverted. The endometrium measures 5.0 mm in combined thickness. Incidental note is made of a small calcification within the endocervical canal margin, measuring 9 x 9 x 12 mm. Ovaries: The right ovary measures 2.5 x 2.0 x 4.9 cm and the left measures 2.2 x 1.2 x 3.4 cm. IMPRESSION: Source of left adnexal pain not identified. 9 x 9 x 12 mm cervical margin calcification presumably is dystrophic in etiology. No endometrial or myometrial mass. No free fluid within the adjacent pelvis. No sign of ovarian torsion. Dictated by: Rashel Ramirez M.D. on 02/21/2020 at 9:45 Approved by: Rashel Ramirez M.D. on 02/21/2020 at 9:48
== END ==
PROVIDERS: PCP Family Medicine; Referring Provider Family Medicine; Visit Provider Family Medicine
DX: N93.9 Abnormal uterine and vaginal bleeding, unspecified (principal); R10.2 Pelvic and perineal pain
CPT/HCPCS: 76856

== ENCOUNTER → 2020-08-05 11:19 | Outpatient (CLI) | payer OTHER, SELFPAY ==
[2020-08-05 13:19] LABS: Urine Chlamydia NOT DETECTED; Urine N gonorrhoeae NOT DETECTED
== END ==
PROVIDERS: PCP Family Medicine; Visit Provider Nurse Practitioner
DX: N89.8 Other specified noninflammatory disorders of vagina (principal)
CPT/HCPCS: 87210; 87491; 87591

== ENCOUNTER → 2021-04-15 08:07 | Outpatient (CLI) | payer OTHER, SELFPAY | PROVIDERS: PCP Family Medicine; Visit Provider Nurse Practitioner Family | DX: N23 Unspecified renal colic (principal) | CPT/HCPCS: 87086 ==

== ENCOUNTER → 2021-04-16 12:27 | Outpatient (CLI) | payer OTHER, SELFPAY | PROVIDERS: PCP Family Medicine; Visit Provider Physician Assistant | DX: N89.8 Other specified noninflammatory disorders of vagina (principal) | CPT/HCPCS: 87210 ==

== ENCOUNTER 2021-04-26 21:39 | Emergency (ER) | payer OTHER, SELFPAY ==
--- NOTE | 2021-04-26 21:41 | ED_ITS ---
HPI - Back Pain/Injury General Chief Complaint: Urogenital-Female Stated Complaint: BACK LEFT SIDE FLANK PAIN Time Seen by Provider: 04/26/21 21:41 History of Present Illness HPI Narrative: 25-year-old female former smoker with extensive history of UTIs presents with a chief complaint of left-sided back pain over the past few days. She states largely it seems to get worse when she moves and improves with rest, it may wrap around a bit but no significant radiation is noted. She has had no fever or chills. She does have occasional dysuria and nausea but denies any hematuria or frequency. She denies any injury. She denies use of blood thinners. She denies any saddle anesthesia or involvement of her extremities. She denies abdominal pain. She denies vaginal bleeding or discharge Related Data Previous Rx's Medication Instructions Recorded meloxicam 7.5 mg tablet 7.5 mg PO DAILY #30 tab 12/28/20 escitalopram oxalate 20 mg tablet See Rx Instructions .ROUTE 01/25/21 .COMPLEX #30 tab quetiapine 25 mg tablet See Rx Instructions .ROUTE 01/25/21 .COMPLEX #30 tab tamsulosin 0.4 mg capsule 0.4 mg PO DAILY #30 cap 04/23/21 hydrocodone 5 mg-acetaminophen 325 1 tab PO Q4-6H PRN #10 tab 04/26/21 mg tablet ketorolac 10 mg tablet 10 mg PO Q6H PRN #14 tab 04/26/21 ondansetron 4 mg disintegrating 4 mg PO TID-QID PRN #10 tab 04/26/21 tablet Allergies Allergy/AdvReac Type Severity Reaction Status Date / Time meloxicam [MELOXICAM] Allergy Intermediate Verified 08/05/20 12:00 naproxen [From NAPROSYN] Allergy Intermediate Verified 08/05/20 12:00 miconazole [From MONISTAT 3] Allergy Mild Verified 08/05/20 12:00 skin cleanser combination Allergy Mild Verified 08/05/20 12:00 no.17 [From MONISTAT 3] shrimp [SHRIMP] Allergy Unknown hives Verified 08/05/20 12:00 Sulfa (Sulfonamide AdvReac Mild VOMITING/DANIEL Verified 08/05/20 12:00 Antibiotics) Review of Systems Review of Systems Narrative: GENERAL: Denies chills, fatigue, malaise, fever, sweats. HEENT: Denies sinus pain, ear pain, sore throat, difficulty swallowing, dizziness. RESPIRATORY: Denies dyspnea, cough, wheezing, hemoptysis, sputum. CARDIOVASCULAR: Denies chest pain, palpitations, orthopnea, edema, GASTROINTESTINAL: See HPI : See HPI MUSCULOSKELETAL: denies weakness, joint pain, or bony pain SKIN: Denies rash, skin lesions, or other NEUROLOGIC: Denies weakness, headache, numbness, change in speech, confusion, seizures, incoordination. PSYCHIATRIC: No concerning psychosocial issues. 12 point review of systems is negative except for those stated above Patient History Medical History Anxiety Depression History of vaginal delivery Social History Smoking Status: Former smoker alcohol intake: current substance use type: does not use Smoking Status: Former smoker alcohol intake frequency: holidays/special occasions only Substance Use Type: does not use Exam Narrative Exam Narrative: GENERAL: [25 year old patient appears stated age. Well-developed patient, in mild distress. HEAD: Atraumatic. Normocephalic. EYES: Pupils equal round and reactive. Extraocular motions intact. No scleral icterus. No injection or drainage. ENT: Nose without bleeding, purulent drainage. Throat without erythema, tonsillar hypertrophy or exudate. Airway patent. NECK: Trachea midline. Non tender CARDIOVASCULAR: Regular rate and rhythm without murmurs, gallops, or rubs. RESPIRATORY: Clear to auscultation. Breath sounds equal bilaterally. No wheezes, rales, or rhonchi. GASTROINTESTINAL: Abdomen soft, non-tender, nondistended. EXTREMITIES: No edema or joint tenderness. BACK: Mild left flank tenderness to palpation, no erythema, induration or fluctuance, no rash NEURO: AOx3. SKIN: No rash or erythema of visible areas Initial Vital Signs Initial Vital Signs: Vital Signs Temperature 97.7 F 04/26/21 21:42 Pulse Rate 81 04/26/21 21:42 Respiratory Rate 16 04/26/21 21:42 Blood Pressure 119/74 04/26/21 21:42 Pulse Oximetry 100 10 21:42 Course Orders Ordered: Discontinued Medications Hydrocodone Bitart/Acetaminophen (Hydrocodone/Acet 5/325 Prepack) 1 bottle [facility] SEEINSTR ONE Stop: 04/26/21 22:36 Last Admin: 04/26/21 22:55 Dose: 1 bottle Documented by: EDITHYLNAT Ketorolac Tromethamine (Ketorolac 30 Mg/Ml Vial) 30 mg IM NOW ONE Stop: 04/26/21 22:36 Last Admin: 04/26/21 22:54 Dose: 30 mg Documented by: EDITHYLOR Ondansetron HCl (Ondansetron 4 Mg Odt Prepack) 1 bottle [facility]ISC SEEINSTR ONE Stop: 04/26/21 22:36 Last Admin: 04/26/21 22:55 Dose: 1 bottle Documented by: FRANKY Vital Signs Vital signs: Vital Signs - 8 hr 04/26/21 21:42 Temperature 97.7 F Pulse Rate 81 Respiratory Rate 16 Blood Pressure 119/74 Pulse Oximetry 100 MDM - Back Pain/Injury Lab Data Labs: Point of Care Testing Test Results Negative Urine Dip Bedside Urine Glucose Negative Bedside Urine Bilirubin - Negative Bedside Urine Ketone - Negative Urine Specific [place] 1.020 Bedside Urine Occult Blood - Negative Bedside Urine pH 6.0 Bedside Urine Protein - Negative Bedside Urine Urobilinogen - Negative Bedside Urine Nitrite - Negative Bedside Urine Leukocytes - Negative Esterase Imaging Data CT scan - abdomen/pelvis: Radiologist's Impression: Launch?[place] [address] CT Scan Report Signed Patient: Emi Paniagua MR#: [id number] : 1995 Acct:[id number] Age/Sex: 25 / F Date of Service: 04/26/21 Loc: ED Accession Number: [id number] ?? Procedure: CT kidney ureter bladder (KUB) Ordering Provider: Chuy Hamilton D.O. PROCEDURE:? CT KIDNEY URETER BLADDER (KUB) ? INDICATIONS:? left flank pain ? TECHNIQUE:? Axial sections were acquired from the lung bases to the pubic symphysis.? Coronal and sagittal reformats were performed.? For radiation dose reduction, the following was used: ?automated exposure control, adjustment of mA and/or kV according to patient size.? ? COMPARISON:? None. ? FINDINGS: ABDOMEN:? Lung bases:? No acute findings. Heart:? No pericardial effusion. Normal in size.? ? Liver: Normal. Gallbladder:? Decompressed otherwise unremarkable. Bile ducts: Normal. Pancreas: Normal.? Spleen: Normal.? Adrenals: Normal. Kidneys and Ureters:? Normal.? No evidence of urinary obstruction.? No urolithiasis seen. Stomach and duodenum:? Stomach is distended. Bowel: Appendix is not clearly identified however no suspicious pericecal inflammatory changes are seen. Other:? No free fluid or air.? Abdominal nodes:? Normal. Aorta and IVC: Normal in size.? ? Ventral wall: Normal. ? PELVIS:? ? Bladder: Normal.? Inguinal region: No hernia.? Pelvic nodes: Normal.? ? Bones:? No suspicious bony lesions.? No vertebral body compression fractures. ? IMPRESSION: ? No urolithiasis.? No evidence of urinary obstruction ? No acute findings identified. ? Dictated by: Timothy Reyes M.D. on 04/26/2021 at 22:16 ? ? Approved by: Timothy Reyes M.D. on 04/26/2021 at 22:19 ? MDM Narrative Medical decision making narrative: 25-year-old female well appearing with multiple days of left flank pain and occasional urinary symptoms. Today's urine was unremarkable as was last weeks. CT KUB demonstrates no kidney stone or other abnormalities with a urogenital tract. She is very reassuring history and physical exam. She has had chronic general urinary symptoms and has had difficulty with urology consult. I have given her extensive return precautions, sent her information to the urology office and encouraged her to follow up. Questions answered to her apparent satisfaction Discharge Plan Departure Patient Disposition: Home Clinical Impression: Acute left flank pain Activity Restrictions/Additional Instructions: *You have been diagnosed with [left flank pain with very reassuring urine that does not demonstrate any blood or infection as well as a CT scan that shows no sign of kidney swelling, kidney stone or other abnormality *What to do: *Please continue to take your regular medications as directed. [x ] New medication prescriptions sent to your pharmacy: [ [facility] in [place]] [ ] New medication written as a paper prescription [ ] No new medications given *Please follow up with your primary care provider in 2-3 days, call for an appointment. Let them know you were seen in the Emergency Department and that we ask that you be seen in follow up. We will electronically transmit a record of today's note if your PCP is in our system * as we discussed, it would seem reasonable to follow-up with urology, in no you been trying, but hopefully this note will help get you in sooner. I will electronically transmitted copy of today's note to our urology office. *If you do not have a primary care provider please contact the [facility] Resource line at [phone]. They will ask some questions about your medical history and help get you set up with a doctor in the community. *Return to Emergency Department if you should have any new, worsening or concerning symptoms, such as [fever greater than 101 F, shaking chills, worsening pain, persistent vomiting or other bothersome symptoms] Prescriptions: New hydrocodone-acetaminophen 5-325 mg tablet 1 tab PO Q4-6H PRN (Reason: pain) Qty: 10 RF: 0 ketorolac 10 mg tablet 10 mg PO Q6H PRN (Reason: pain) Qty: 14 RF: 0 ondansetron 4 mg tablet,disintegrating 4 mg PO TID-QID PRN (Reason: nausea and vomiting) Qty: 10 RF: 0 No Action meloxicam 7.5 mg tablet 7.5 mg PO DAILY Qty: 30 RF: 0 quetiapine 25 mg tablet See Rx Instructions .ROUTE .COMPLEX Qty: 30 RF: 2 escitalopram oxalate 20 mg tablet See Rx Instructions .ROUTE .COMPLEX Qty: 30 RF: 2 tamsulosin 0.4 mg capsule 0.4 mg PO DAILY Qty: 30 RF: 0 Referrals: Haydee Matute MD [Physician] - Lita Neal MD [Primary Care Provider] -
[2021-04-26 21:42] VITALS: BP 119/74; PULSE 81; RESP 16; TEMP 36.5; O2SAT 100; BMI 20.9
--- NOTE | 2021-04-26 22:02 | DI.CT.S_ITS ---
PROCEDURE: CT KIDNEY URETER BLADDER (KUB) INDICATIONS: left flank pain TECHNIQUE: Axial sections were acquired from the lung bases to the pubic symphysis. Coronal and sagittal reformats were performed. For radiation dose reduction, the following was used: automated exposure control, adjustment of mA and/or kV according to patient size. COMPARISON: None. FINDINGS: ABDOMEN: Lung bases: No acute findings. Heart: No pericardial effusion. Normal in size. Liver: Normal. Gallbladder: Decompressed otherwise unremarkable. Bile ducts: Normal. Pancreas: Normal. Spleen: Normal. Adrenals: Normal. Kidneys and Ureters: Normal. No evidence of urinary obstruction. No urolithiasis seen. Stomach and duodenum: Stomach is distended. Bowel: Appendix is not clearly identified however no suspicious pericecal inflammatory changes are seen. Other: No free fluid or air. Abdominal nodes: Normal. Aorta and IVC: Normal in size. Ventral wall: Normal. PELVIS: Bladder: Normal. Inguinal region: No hernia. Pelvic nodes: Normal. Bones: No suspicious bony lesions. No vertebral body compression fractures. IMPRESSION: No urolithiasis. No evidence of urinary obstruction No acute findings identified. Dictated by: Timothy Reyes M.D. on 04/26/2021 at 22:16 Approved by: Timothy Reyes M.D. on 04/26/2021 at 22:19
[2021-04-26 22:23] VITALS: PULSE 71; O2SAT 100
[2021-04-26 22:30] VITALS: PULSE 84; O2SAT 99
[2021-04-26 22:36] VITALS: BP 109/66; PULSE 85; O2SAT 99
[2021-04-26] MEDS: KETOROLAC 30 MG/ML VIAL IM (22:54)
[2021-04-26] MEDS: ONDANSETRON 4 MG ODT PREPACK 1 BOTTLE MISC (22:55)
[2021-04-26] MEDS: HYDROCODONE/ACET 5/325 PREPACK 1 BOTTLE MISC (22:55)
== END 2021-04-26 23:08 | disposition home or self-care (01) ==
PROVIDERS: Emergency Provider Emergency Medicine; PCP Family Medicine
DX: R10.9 Unspecified abdominal pain (principal)
CPT/HCPCS: 74176; 81003; 81025; 96372; 99284; J1885

== ENCOUNTER → 2021-05-17 12:36 | Outpatient (CLI) | payer SELFPAY | PROVIDERS: PCP Family Medicine; Visit Provider Nurse Practitioner Family | DX: R30.9 Painful micturition, unspecified (principal) | CPT/HCPCS: 87077; 87086; 87186 ==

== ENCOUNTER → 2021-06-14 10:15 | Outpatient (CLI) | payer SELFPAY ==
[2021-06-14 12:06] LABS: Add Manual Diff / Slide Review NO; Basophils Absolute Auto 0 /uL (0-100); Basophils Percent Auto 0.4 % (0-2); Eosinophils Absolute Auto 100 /uL (0-450); Eosinophils Percent Auto 1.2 % (2-4); Hematocrit 35.5 % (36-46); Hemoglobin 12.2 g/dL (12.0-16.0); Lymphocytes Absolute Auto 1300 /uL (1100-4500); Lymphocytes Percent Auto 22.5 % (25-40); Mean Corpuscular HGB Conc 34.2 % (30-36); Mean Corpuscular Hemoglobin 30.4 PG (26-34); Mean Corpuscular Volume 88.9 fL (80-100); Monocytes Absolute Auto 200 /uL (0-900); Monocytes Percent Auto 4.2 % (3-14); Neutrophils Absolute Auto 4200 /uL (1500-7000); Neutrophils Percent Auto 71.7 % (50-75); Platelet Count 263 X10^3/uL (150-400); Red Blood Cell Count 3.99 X10^6/uL (4.0-5.2); Red Cell Distribution Width 13.3 % (11.6-14.8); White Blood Cell Count 5.9 X10^3/uL (4.5-11.0)
[2021-06-14 12:42] LABS: Appearance Urine UA CLEAR; Bilirubin Urine UA NEGATIVE (NEGATIVE); Color Urine UA YELLOW; Glucose Urine UA NEGATIVE (Negative); Ketones Urine UA NEGATIVE (NEGATIVE); Leukocyte Esterase Urine UA NEGATIVE (NEGATIVE); Nitrite Urine UA NEGATIVE (Negative); Occult Blood Urine UA NEGATIVE (Negative); Protein Urine UA NEGATIVE (Negative); Specific Gravity Urine UA <=1.005 (1.000-1.035); Urobilinogen Urine UA 0.2 E.U./dL (0.2)
[2021-06-14 12:44] LABS: pH Urine UA 5.5 (4.5-8.0)
[2021-06-14 17:10] LABS: Hepatitis B Surface Antigen NEGATIVE s/c (NEGATIVE)
[2021-06-14 17:14] LABS: HIV 1 & 2 Ab/Ag 4th Gen Combo NEGATIVE (NEGATIVE)
[2021-06-14 17:29] LABS: Hep C Virus Ab w/Reflex Quant NEGATIVE s/c (NEGATIVE)
[2021-06-15 05:28] LABS: Varicella IgG Antibody 279 index (Immune >165)
[2021-06-17 16:16] LABS: RPR Screen Non Reactive (Non Reactive)
== END ==
PROVIDERS: PCP Family Medicine; Referring Provider Family Medicine; Visit Provider Family Medicine
DX: Z34.81 Encounter for supervision of other normal pregnancy, first trimester (principal)
CPT/HCPCS: 36415; 80055; 81003; 86787; 86803; 86850; 86900; 86901; 87086; 87389

== ENCOUNTER → 2021-07-05 13:13 | Outpatient (CLI) | payer SELFPAY ==
[2021-07-05 14:13] LABS: Appearance Urine UA CLEAR; Bilirubin Urine UA NEGATIVE (NEGATIVE); Color Urine UA YELLOW; Glucose Urine UA NEGATIVE (Negative); Ketones Urine UA NEGATIVE (NEGATIVE); Leukocyte Esterase Urine UA 1+ (NEGATIVE); Nitrite Urine UA NEGATIVE (Negative); Occult Blood Urine UA NEGATIVE (Negative); Protein Urine UA NEGATIVE (Negative); Specific Gravity Urine UA 1.025 (1.000-1.035); Urobilinogen Urine UA 0.2 E.U./dL (0.2)
[2021-07-05 14:25] LABS: Bacteria Urine None Seen; Culture Indicated Urine Specimen Cultured; RBC Urine 1-5/HPF (0-5/HPF); WBC Urine 10-30/HPF (0-5/HPF)
== END ==
PROVIDERS: PCP Family Medicine; Referring Provider Family Medicine; Visit Provider Family Medicine
DX: N30.01 Acute cystitis with hematuria (principal); R30.0 Dysuria
CPT/HCPCS: 36415; 81001; 87077; 87086; 87186

== ENCOUNTER → 2021-09-10 08:20 | Outpatient (CLI) | payer SELFPAY ==
--- NOTE | 2021-09-10 08:28 | DI.US.S_ITS ---
PROCEDURE: US OB >= 14 WEEKS FETUS INDICATIONS: ANATOMY OUTSIDE/PRIOR DATING DATA: Last menstrual period (LMP): Unknown. LMP-based estimated date of delivery (ALAINA): Unknown. First dating scan (date and location): 09/10/2021. Estimated date of delivery (ALAINA) from first dating scan: 01/21/2022. TECHNIQUE: Real-time scanning was performed of the fetus, with image documentation and biometric measurements. Endovaginal scanning: None COMPARISON: None. FINDINGS: General: A single living intrauterine gestation is present. Presentation: Vertex. Placenta: Placental position is posterior , without previa. Amniotic fluid index: 14.3 cm, normal range is 5-24 cm. heart rate: 155 beats per minute. Maternal cervical canal: 3.9 cm long. Normal lower limit is 2.5 cm. biometrics: Biparietal diameter: 4.9 cm, 20 week 6 day Head circumference: 18.7 cm, 21 week 0 day Abdominal circumference: 16.0 cm, 21 week 1 day Femur length: 3.9 cm, 20 week 5 day Clinically estimated gestational age: Not applicable Composite gestational age from present scan: 21 week 0 day Estimated weight and percentile: 389 g Anatomic survey: Neuro: Ventricles are non-dilated at less than 10 mm. Cisterna magna is normal at 3-11 mm. Cerebellum is normal in size and morphology. Nuchal skin fold: Normal at less than 6 mm between 14-21 weeks gestational age. Face: Nose and lips, facial profile are normal. Spine: No evidence for spina bifida. Heart: 4-chambered heart is present, with normal ventricular outflow tracts. Diaphragm: Diaphragm is intact. Stomach: Left-sided stomach is present. Kidneys: No hydronephrosis. Normal is less than 5 mm in 2nd trimester, less than 7 mm in 3rd trimester. Cord: 3-vessel cord has orthotopic insertion. Bladder: Normal in size. Extremities: All 4 extremities identified. IMPRESSION: Single live intrauterine consistent with a 21 week 0 day gestation by current ultrasound. Low lying posterior placenta, placental edge is 1.1 cm from the internal os Normal anatomic survey Approved by: Boy Rojas M.D. on 09/10/2021 at 9:49
== END ==
PROVIDERS: PCP Family Medicine; Referring Provider Family Medicine; Visit Provider Family Medicine
DX: Z34.92 Encounter for supervision of normal pregnancy, unspecified, second trimester (principal); Z3A.21 21 weeks gestation of pregnancy
CPT/HCPCS: 76811

== ENCOUNTER → 2021-10-11 07:42 | Outpatient (CLI) | payer SELFPAY ==
--- NOTE | 2021-10-11 08:05 | DI.US.S_ITS ---
PROCEDURE: US OB LIMITED INDICATIONS: LOW-LYING PLACENTA OUTSIDE/PRIOR DATING DATA: First dating scan (date and location): 09/10/2021. Estimated date of delivery (ALAINA) from first dating scan: 01/21/2022. The calculations are made using the ultrasound ALAINA of ultrasound 01/21/2022. TECHNIQUE: Real-time scanning was performed of the fetus, with image documentation and biometric measurements. COMPARISON: None. FINDINGS: General: A single living intrauterine gestation is present. Presentation: Vertex. Placenta: Placental position is posterior , with the inferior margin of the placenta roughly 2. 9 cm above the internal cervical os. Amniotic fluid index: 10.7 cm, normal range is 5-24 cm. heart rate: 153 beats per minute. Maternal cervical canal: 4.2 cm long. Normal lower limit is 2.5 cm. Composite gestational age from present scan: 25 weeks 3 days IMPRESSION: Single living IUP redemonstrated and low lying placenta has resolved. We strive to produce accurate, complete, and clear reports of imaging services. To assist us in improving patient care, this report was composed using standard report templates and voice recognition software. Therefore, it may contain abnormal punctuation, insertions and/or omissions. Occasional wrong-word or sound-alike substitutions may occur. Though we review the report and make efforts to correct it, we do recommend that the report be read carefully in proper context to recognize any text inaccuracies. Dictated by: Arcenio AKERS Interpreted: Robbi Perry MD on 10/11/2021 at 9:47 Transcribed by: LYSSA on 10/11/2021 at 9:50 Approved by: Robbi Perry M.D. on 10/11/2021 at 12:55
== END ==
PROVIDERS: PCP Family Medicine; Referring Provider Family Medicine; Visit Provider Family Medicine
DX: O44.42 Low lying placenta NOS or without hemorrhage, second trimester (principal); Z3A.25 25 weeks gestation of pregnancy
CPT/HCPCS: 76815

== ENCOUNTER → 2021-10-28 15:13 | Outpatient (CLI) | payer OTHER, SELFPAY ==
[2021-10-28 18:47] LABS: Add Manual Diff / Slide Review NO; Basophils Absolute Auto 0 /uL (0-100); Basophils Percent Auto 0.3 % (0-2); Eosinophils Absolute Auto 100 /uL (0-450); Eosinophils Percent Auto 0.7 % (2-4); Hematocrit 33.7 % (36-46); Lymphocytes Absolute Auto 1500 /uL (1100-4500); Lymphocytes Percent Auto 16.5 % (25-40); Mean Corpuscular HGB Conc 35.4 % (30-36); Mean Corpuscular Hemoglobin 32.4 PG (26-34); Mean Corpuscular Volume 91.3 fL (80-100); Monocytes Absolute Auto 500 /uL (0-900); Monocytes Percent Auto 5.5 % (3-14); Neutrophils Absolute Auto 6800 /uL (1500-7000); Platelet Count 286 X10^3/uL (150-400); Red Blood Cell Count 3.69 X10^6/uL (4.0-5.2); Red Cell Distribution Width 13.3 % (11.6-14.8); White Blood Cell Count 8.8 X10^3/uL (4.5-11.0)
[2021-10-28 20:24] LABS: GTT (PREG) 1 Hour PP 50gm Dose 105 mg/dL (76-139)
== END ==
PROVIDERS: PCP Family Medicine; Referring Provider Family Medicine; Visit Provider Family Medicine
DX: Z13.9 Encounter for screening, unspecified (principal); Z3A.26 26 weeks gestation of pregnancy
CPT/HCPCS: 36415; 82950; 85025; 86850

== ENCOUNTER → 2021-12-27 11:52 | Outpatient (CLI) | payer OTHER, SELFPAY ==
[2021-12-28 10:53] LABS: Strep Grp B PCR NEG for Grp B Strep
== END ==
PROVIDERS: PCP Family Medicine; Visit Provider Family Medicine
DX: Z34.93 Encounter for supervision of normal pregnancy, unspecified, third trimester (principal); Z3A.36 36 weeks gestation of pregnancy
CPT/HCPCS: 87653

== ENCOUNTER 2022-01-20 18:32 | Observation (INO) | payer OTHER, SELFPAY ==
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
== END 2022-01-20 19:40 | disposition home or self-care (01) ==
LOC: LABOR 18:34
PROVIDERS: Admitting Provider Family Medicine; PCP Family Medicine; Referring Provider Family Medicine; Visit Provider Family Medicine
DX: Z03.71 Encounter for suspected problem with amniotic cavity and membrane ruled out (principal); O48.0 Post-term pregnancy; Z3A.40 40 weeks gestation of pregnancy
CPT/HCPCS: 59025; 84112; G0378; G0379

== ENCOUNTER 2022-01-20 21:49 | Inpatient (IN) | payer OTHER, SELFPAY ==
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
[2022-01-20 23:20] LABS: Add Manual Diff / Slide Review NO; Basophils Absolute Auto 0 /uL (0-100); Basophils Percent Auto 0.4 % (0-2); Eosinophils Absolute Auto 100 /uL (0-450); Eosinophils Percent Auto 0.9 % (2-4); Hematocrit 34.9 % (36-46); Hemoglobin 12.1 g/dL (12.0-16.0); Lymphocytes Absolute Auto 1600 /uL (1100-4500); Lymphocytes Percent Auto 16.3 % (25-40); Mean Corpuscular HGB Conc 34.7 % (30-36); Mean Corpuscular Volume 89.2 fL (80-100); Monocytes Absolute Auto 500 /uL (0-900); Monocytes Percent Auto 5.3 % (3-14); Neutrophils Absolute Auto 7700 /uL (1500-7000); Neutrophils Percent Auto 77.1 % (50-75); Platelet Count 235 X10^3/uL (150-400); Red Blood Cell Count 3.91 X10^6/uL (4.0-5.2); Red Cell Distribution Width 13.2 % (11.6-14.8)
[2022-01-20 23:30] LABS: COVID19 -Nasal RAPID Negative (Negative)
[2022-01-20 23:50] VITALS: BP 122/77
[2022-01-21] MEDS: LACTATED RINGERS 1,000 ML 100 ML IV (04:57)
--- NOTE | 2022-01-21 08:11 | PM.OBPNLAB ---
Date/Time Date Patient Seen: 01/21/22 Time Patient Seen: 08:11 Pain Control Pain control: epidural Pelvic Exam Dilation (cm): 5 Effacement (%): 100 station: 0 Amniotic membrane status: Ruptured Comments: After informed consent, AROM performed with production of meconium-stained fluid. Contractions Monitor mode: External Contraction frequency (min): 4 Contraction intensity: Strong/Firm Status status: Category l Heart Rate Baseline: 150 Monitor Accelerations: Absent Monitor Decelerations: Absent Monitor Variability: Moderate Assessment and Plan Comments: 26yo at 40w2d here in labor. GBS negative, Rh negative. complicated by anxiety/depression and recurrent UTIs. Minimal cervical change since admission, AROM performed with production of meconium-stained fluid. - Expectant management, anticipate - GBS negative, no prophylaxis indicated - Epidural in place for pain control - FHT reassuring - Collect cord blood for Rh status after delivery
[2022-01-21] MEDS: FENT 2MCG/ML BUPIV 0.125% EPI 200 MCG/100 ML PLAST..BAG 8 MCG EPIDURAL (08:58)
--- NOTE | 2022-01-21 13:41 | PM.OBPRVD ---
Labor & Delivery Delivery date: 01/21/22 Intrapartal Events: None Cervical ripening method: none Induction method: none Delivery augmentation: rupture of membranes Delivery monitor: external FHT and external uterine Route of delivery: Episiotomy description: None L&D Laceration Description: None Quantitative Blood Loss: 900 Anesthesia Type: Epidural Complications: hemorrhage Narrative: PROCEDURE: at 40w2d presented in active labor and was admitted to Labor and Delivery. The patient progressed through the 1st stage over 15 hours. Pain was controlled with an epidural. AROM was performed with production of meconium-stained fluid. The patient progressed through the 2nd stage over 17 minutes and delivered a viable female infant with APGARs 8/9 at 12:40 via without complications. After delivery, delayed cord clamping was performed. There were multiple large gushes of blood from the pts vagina. Due to this, the cord was cut and clamped before it had fully stopped pulsating. After delivery of the placenta with gentle cord traction, pitocin was initiated. She continued to have brisk vaginal bleeding. With bimanual massage, her uterus contracted appropriately and the pts bleeding was controlled. She was given cytotec as well to control bleeding. The perineum and vagina were inspected with no lacerations. PREPROCEDURE DIAGNOSIS: Intrauterine at 40w2d GBS negative RH negative POSTPROCEDURE DIAGNOSIS: Intrauterine at 40w2d, delivered Same as preprocedure Uterine atony hemorrhage Fitzgerald Baby 1: gender: Female Presentation: vertex Position: Left Occiput Anterior Placenta delivery description: Spontaneous Cord Vessel Description: 3 Vessels score (1 min): 8 score (5 min): 9 weight: 8 lb 11.403 oz Plan for aftercare: Routine care
[2022-01-21] MEDS: IBUPROFEN 600 MG TABLET PO ×2 (15:22→21:45)
[2022-01-21] MEDS: ACETAMINOPHEN 325 MG TABLET 650 MG PO (20:22)
[2022-01-21] MEDS: QUETIAPINE 25 MG TABLET 75 MG PO (21:45)
[2022-01-21] MEDS: ESCITALOPRAM 10 MG TABLET 20 MG PO (21:51)
[2022-01-22] MEDS: LANOLIN OINT 7 GM 1 APPLIC TOP (04:45)
[2022-01-22] MEDS: ACETAMINOPHEN 325 MG TABLET 650 MG PO ×2 (04:46→11:43)
[2022-01-22] MEDS: IBUPROFEN 600 MG TABLET PO ×2 (04:46→11:44)
[2022-01-22 06:57] LABS: Hematocrit 28.7 % (36-46)
[2022-01-22] MEDS: DOCUSATE 100 MG CAPSULE PO (08:28)
[2022-01-22] MEDS: PRENATAL VIT,CALC/IRON/FOLIC 1 TABLET 1 TAB PO (08:28)
--- NOTE | 2022-01-22 09:20 | PM.OBDS.1 ---
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 She had no intrapartum complications, and delivered a healthy baby girl after a short second stage. She had a hemorrhage of 900ccs immediately after delivery that responded to uterine massage, pitocin and cytotec. Her course was otherwise uncomplicated, and she was discharged on PPD#1 with routine precautions. Peripartum Data Infant Delivery Method: Natural Vaginal Laceration Description: None complications: none 1: Gender: Female Disposition of : home Status at Discharge Cognitive/behavioral status at discharge: oriented Functional status at discharge: independent ambulation Time Spent with Patient Time attestation: Total time spent providing and/or coordinating discharge services: Objective Labs Result Diagrams: 01/22/22 06:50 Labs: Laboratory Results - last 24 hr 01/22/22 01/22/22 06:50 06:50 Hgb 10.0 L Hct 28.7 L Maternal Bleed Negative Exam Vital Signs (past 8 hours): 112/73, HR 75, afebrile Narrative Exam Narrative: Patient resting in bed, nursing. Mild lochia, voiding, passing flatus, tolerating PO, ambulating, no anemia symptoms. Const General: cooperative, healthy appearing, comfortable and well groomed Resp Effort & Inspection: normal respiratory effort Auscultation: clear to auscultation bilaterally Cardio Rate: regular rate Rhythm: regular rhythm GI Palpation: soft and No tender Other: Fundus firm, well below u Extrem General: normal to inspection Discharge Plan Discharge Plan Patient Disposition: Home Discharge orders & Medications Prescriptions: New ferrous sulfate 325 mg (65 mg iron) tablet,delayed release (DR/EC) 325 mg PO DAILY Qty: 30 3RF Rx Instructions: Take once daily. Continued valacyclovir 500 mg tablet 500 mg PO BID Qty: 60 2RF escitalopram oxalate 20 mg tablet See Rx Instructions .ROUTE .COMPLEX Qty: 90 2RF Dose Instruction: Take 1 tablet (20 mg) by mouth daily Rx Instructions: Take 1 tablet (20 mg) by mouth daily quetiapine 25 mg tablet 75 mg PO BEDTIME Qty: 270 3RF Rx Instructions: 75 mg orally bedtime; Follow up/Referrals: Lita Neal MD [Primary Care Provider] - 6 Weeks ( check) Diet/Activity/Treatments Diet: Regular Activity: Nothing in the vagina for 6 weeks. Avoid lifting more than 10 lbs for 6 weeks. If you have increasing bleeding, fevers, chills, nausea, headaches, dizziness, or any other symptoms or concerns, call or come to the emergency room. Skin/Wound/Dressing Care Report to your healthcare provider any signs of infection, such as:: chills, fever, night sweats, increased pain, unusual drainage and unusual redness Visit Report/Discharge Packet Instructions: DI for Labor and Delivery, Vaginal Discharge Data Primary Care Provider: Lita Neal
[2022-01-22 12:30] VITALS: BP 113/69; PULSE 76; RESP 18; TEMP 36.4
[2022-01-22] MEDS: RHO(D) IMMUNE GLOBULIN 1,500 UNIT SYRINGE 1500 UNIT IM (12:42)
== END 2022-01-22 13:30 | disposition home or self-care (01) | DRG 806 ==
PROVIDERS: Nurse Practitioner Obstetrics & Gynecology; Admitting Provider Family Medicine; PCP Family Medicine; Referring Provider Family Medicine; Visit Provider Family Medicine
DX: O99.344 Other mental disorders complicating childbirth (principal); D62 Acute posthemorrhagic anemia; Z37.0 Single live birth; O72.1 Other immediate postpartum hemorrhage; F41.9 Anxiety disorder, unspecified; F32.A Depression, unspecified; Z3A.40 40 weeks gestation of pregnancy; Z20.822 Contact with and (suspected) exposure to COVID-19
CPT/HCPCS: 01967; 36415; 59025; 59050; 59400; 84112; 85014; 85018; 85025; 85461; 86850; 86900; 86901; 87635; C9803; G0378; G0379; J2790

== ENCOUNTER → 2022-03-23 14:47 | Outpatient (CLI) | payer OTHER, SELFPAY ==
--- NOTE | 2022-03-23 14:48 | DI.US.S_ITS ---
PROCEDURE: US ABDOMEN COMPLETE INDICATIONS: NAUSEA TECHNIQUE: Real-time scanning was performed of the abdominal and retroperitoneal organs, with image documentation. COMPARISON: [facility], US, ABDOMEN COMPLETE, 01/05/2015, 20:46. FINDINGS: Liver: Liver is normal in size and homogeneous in echotexture. Gallbladder: Sonolucent without evidence cholelithiasis, gallbladder wall thickening or pericholecystic fluid. No sonographic Molina sign. Biliary ducts: Intrahepatic bile ducts are non-dilated. Extrahepatic bile duct caliber measures 2.9 mm. Normal is 6-7 mm or less in diameter, or 10 mm or less post-cholecystectomy. Pancreas: Visualized portions of the pancreas are sonographically normal. Spleen: Spleen is normal in size and homogeneous in echotexture. Kidneys: Kidneys are normal in size and echotexture. Right kidney measures 11.6 cm long; left kidney measures 9.9 cm long. No hydronephrosis or nephrolithiasis. No solid masses. Aorta: Visualized aorta is normal in caliber at less than 3 cm. Iliacs: Proximal common iliac arteries are normal in caliber at less than 2.5 cm. IVC: Intrahepatic inferior vena cava is patent. Miscellaneous: No free abdominal fluid. IMPRESSION: Unremarkable ultrasound the abdomen Approved by: Boy Rojas M.D. on 03/23/2022 at 18:27
== END ==
PROVIDERS: PCP Family Medicine; Referring Provider Family Medicine; Visit Provider Family Medicine
DX: R11.0 Nausea (principal); R63.0 Anorexia
CPT/HCPCS: 76700

== ENCOUNTER → 2023-03-27 13:39 | Outpatient (CLI) | payer OTHER, MEDICAID, SELFPAY | PROVIDERS: PCP Family Medicine; Visit Provider Physician Assistant | DX: N89.8 Other specified noninflammatory disorders of vagina (principal) | CPT/HCPCS: 87086; 87210 ==

== ENCOUNTER → 2023-04-19 12:27 | Outpatient (CLI) | payer OTHER, MEDICAID, SELFPAY | PROVIDERS: PCP Family Medicine; Visit Provider Family Medicine | DX: N39.0 Urinary tract infection, site not specified (principal) | CPT/HCPCS: 87086 ==

== ENCOUNTER → 2023-04-19 12:28 | Outpatient (CLI) | payer OTHER, MEDICAID, SELFPAY ==
[2023-04-19 13:18] LABS: Add Manual Diff / Slide Review NO; Basophils Absolute Auto 0 /uL (0-100); Basophils Percent Auto 0.6 % (0-2); Eosinophils Absolute Auto 100 /uL (0-450); Eosinophils Percent Auto 2.5 % (2-4); Hematocrit 36.4 % (36-46); Hemoglobin 12.1 g/dL (12.0-16.0); Lymphocytes Absolute Auto 1600 /uL (1100-4500); Lymphocytes Percent Auto 29.3 % (25-40); Mean Corpuscular HGB Conc 33.4 % (30-36); Mean Corpuscular Hemoglobin 29.4 PG (26-34); Mean Corpuscular Volume 88.1 fL (80-100); Monocytes Absolute Auto 400 /uL (0-900); Monocytes Percent Auto 6.5 % (3-14); Neutrophils Absolute Auto 3400 /uL (1500-7000); Neutrophils Percent Auto 61.1 % (50-75); Platelet Count 323 X10^3/uL (150-400); Red Blood Cell Count 4.13 X10^6/uL (4.0-5.2); White Blood Cell Count 5.5 X10^3/uL (4.5-11.0)
[2023-04-19 13:29] LABS: Prothrombin Time 11.8 SECONDS (10.1-12.7)
[2023-04-19 13:38] LABS: Alanine Aminotransferase 15 IU/L (<35); Albumin 4.2 g/dL (3.5-5.0); Albumin Globulin Ratio 1.4 (1.0-2.8); Alkaline Phosphatase 55 U/L (38-126); Aspartate Aminotransferase 22 IU/L (14-36); BUN Creatinine Ratio 15.4 (6-22); Bilirubin Total 0.3 mg/dL (0.2-1.3); Blood Urea Nitrogen 10 mg/dL (7-17); Calcium 9.2 mg/dL (8.4-10.2); Carbon Dioxide 30 mmol/L (22-32); Chloride 104 mmol/L (98-107); Cholesterol 151 mg/dL (140-199); Estimated Glomerular Filt Rate > 60 mL/min (>60); Globulin 3.1 g/dL (1.7-4.1); Glucose 68 mg/dL (70-100); HDL Cholesterol 45 mg/dL (40-60); HEMOLYSIS < 15 (0-50); LDL Cholesterol Calculated 87 mg/dL (<100); Potassium 3.6 mmol/L (3.4-5.1); Sodium 140 mmol/L (137-145); Total Protein 7.3 g/dL (6.3-8.2); Triglycerides 97 mg/dL (35-150)
[2023-04-19 13:45] LABS: Prealbumin 19.1 mg/dL (17.6-36.0)
[2023-04-19 14:04] LABS: TSH w/ Reflex to FT4 1.52 uIU/mL (0.47-4.68)
[2023-04-19 18:31] LABS: Vitamin D 25 Hydroxy (D3) 36.1 ng/mL (30.0-100.0)
== END ==
PROVIDERS: PCP Family Medicine; Referring Provider Family Medicine; Visit Provider Family Medicine
DX: R63.0 Anorexia (principal); N39.0 Urinary tract infection, site not specified
CPT/HCPCS: 36415; 80053; 80061; 81002; 82306; 83735; 84100; 84134; 84443; 85025; 85610; 87086

== ENCOUNTER → 2023-04-27 15:21 | Outpatient (CLI) | payer OTHER, MEDICAID, SELFPAY | PROVIDERS: PCP Family Medicine; Visit Provider Student in an Organized Health Care Education/Training Program | DX: N89.8 Other specified noninflammatory disorders of vagina (principal) | CPT/HCPCS: 87210 ==

== ENCOUNTER → 2023-06-14 13:40 | Outpatient (CLI) | payer OTHER, MEDICAID, SELFPAY ==
[2023-06-14 14:40] LABS: Add Manual Diff / Slide Review NO; Basophils Absolute Auto 0 /uL (0-100); Basophils Percent Auto 0.3 % (0-2); Eosinophils Absolute Auto 100 /uL (0-450); Eosinophils Percent Auto 0.9 % (2-4); Hematocrit 32.6 % (36-46); Hemoglobin 11.2 g/dL (12.0-16.0); Lymphocytes Absolute Auto 1400 /uL (1100-4500); Lymphocytes Percent Auto 18.8 % (25-40); Mean Corpuscular HGB Conc 34.4 % (30-36); Mean Corpuscular Hemoglobin 29.6 PG (26-34); Mean Corpuscular Volume 86.2 fL (80-100); Monocytes Absolute Auto 300 /uL (0-900); Monocytes Percent Auto 4.4 % (3-14); Neutrophils Absolute Auto 5400 /uL (1500-7000); Neutrophils Percent Auto 75.6 % (50-75); Platelet Count 259 X10^3/uL (150-400); Red Blood Cell Count 3.79 X10^6/uL (4.0-5.2); Red Cell Distribution Width 13.4 % (11.6-14.8); White Blood Cell Count 7.2 X10^3/uL (4.5-11.0)
[2023-06-14 17:36] LABS: Appearance Urine UA CLEAR; Bilirubin Urine UA NEGATIVE (NEGATIVE); Color Urine UA YELLOW; Glucose Urine UA NEGATIVE (Negative); Ketones Urine UA NEGATIVE (NEGATIVE); Leukocyte Esterase Urine UA NEGATIVE (NEGATIVE); Nitrite Urine UA NEGATIVE (Negative); Occult Blood Urine UA NEGATIVE (Negative); Protein Urine UA NEGATIVE (Negative); Specific Gravity Urine UA 1.015 (1.000-1.035); Urobilinogen Urine UA 0.2 E.U./dL (0.2)
[2023-06-14 17:38] LABS: Hepatitis B Surface Antigen NEGATIVE s/c (NEGATIVE); Rubella Antibody IgG 6.3 IU/mL (>15)
[2023-06-14 17:46] LABS: pH Urine UA 7.5 (4.5-8.0)
[2023-06-14 17:54] LABS: HIV 1 & 2 Ab/Ag 4th Gen Combo NEGATIVE (NEGATIVE); Hep C Virus Ab w/Reflex Quant NEGATIVE s/c (NEGATIVE)
[2023-06-15 09:08] LABS: Varicella IgG Antibody 333 index (Immune >165)
[2023-06-16 10:22] LABS: RPR Screen Non Reactive (Non Reactive)
== END ==
PROVIDERS: PCP Family Medicine; Referring Provider Family Medicine; Visit Provider Family Medicine
DX: Z34.80 Encounter for supervision of other normal pregnancy, unspecified trimester (principal)
CPT/HCPCS: 36415; 80055; 81003; 86787; 86803; 86850; 86900; 86901; 87077; 87086; 87186; 87389

== ENCOUNTER 2023-07-11 15:09 | Emergency (ER) | payer OTHER, MEDICAID, SELFPAY ==
[2023-07-11 15:18] VITALS: BP 120/69; PULSE 90; RESP 18; TEMP 36.9; O2SAT 100; BMI 25.3
[2023-07-11 16:07] LABS: Bacteria Urine Many (>30); RBC Urine None Seen (0-5/HPF); Squamous Epithelial Cell Urine 5-10 /HPF (0-5/HPF); WBC Urine 10-30/HPF (0-5/HPF); White Blood Cell Casts Urine 0-1/LPF
[2023-07-11 16:09] VITALS: BP 98/55; PULSE 85; RESP 12; TEMP 36.4; O2SAT 100
[2023-07-11 16:13] LABS: Culture Indicated Urine Specimen Cultured
--- NOTE | 2023-07-11 16:17 | ED_ITS ---
HPI - Female Genitourinary <Dawit Jung PA-C - Last Filed: 07/11/23 16:56> General Chief complaint: Urogenital-Female Stated complaint: UTI/ 12 wks having cramps Time Seen by Provider: 07/11/23 15:59 Source: patient Mode of arrival: Ambulatory History of Present Illness HPI Narrative: This is a 27-year-old female presents to the emergency department due to 2 days of dysuria and urinary frequency. She states that today she was beginning to feel some left flank pain as well. Denies any vaginal discharge, bleeding,. Does report some nausea as well unclear if secondary to . Patient is 12 weeks . She has an OB she was established with. Related Data Home Medications Medication Instructions Recorded Confirmed Saccharomyces boulardii 250 mg 250 mg PO DAILY 04/27/23 06/14/23 capsule (Daily Probiotic (S. boulardii)) magnesium oxide 500 mg capsule 500 mg PO DAILY 04/27/23 06/14/23 vitamin-ferrous sulfate tab PO 05/30/23 06/14/23 27 mg iron-folic acid 0.8 mg tablet Previous Rx's Medication Instructions Recorded quetiapine 25 mg tablet See Rx Instructions .Route 01/23/23 .COMPLEX #270 tabs escitalopram oxalate 20 mg tablet See Rx Instructions .Route 06/14/23 .COMPLEX #90 tabs cefpodoxime 200 mg tablet 200 mg PO BID 10 days #20 tabs 07/11/23 Allergies Allergy/AdvReac Type Severity Reaction Status Date / Time miconazole [From MONISTAT 3] Allergy Intermediate Verified 06/14/23 12:11 shrimp [SHRIMP] Allergy Intermediate hives Verified 06/14/23 12:11 Sulfa (Sulfonamide AdvReac Severe VOMITING/DANIEL Verified 06/14/23 12:11 Antibiotics) meloxicam [MELOXICAM] AdvReac Intermediate Verified 06/14/23 12:11 adhesive tape AdvReac Mild ITCHING Verified 06/14/23 12:11 Review of Systems <Dawit Jung PA-C - Last Filed: 07/11/23 16:56> Review of Systems Narrative: GENERAL: Denies chills, fatigue, malaise, fever, sweats. HEENT: Denies sinus pain, ear pain, sore throat, difficulty swallowing, dizziness. RESPIRATORY: Denies dyspnea, cough, wheezing, hemoptysis, sputum. CARDIOVASCULAR: Denies chest pain, palpitations, orthopnea, edema, GASTROINTESTINAL: Denies nausea, vomiting, abdominal pain, diarrhea, constipation, melena. : Reports urinary frequency, dysuria, left flank plan MUSCULOSKELETAL: denies weakness, joint pain, or bony pain SKIN: Denies rash, skin lesions, or other NEUROLOGIC: Denies weakness, headache, numbness, change in speech, confusion, seizures, incoordination. PSYCHIATRIC: No concerning psychosocial issues. 12 point review of systems is negative except for those stated above Patient History <Dawit Jung PA-C - Last Filed: 07/11/23 16:56> Medical History (Updated 07/11/23 @ 16:55 by Dawit Jung PA-C) Drug abuse Acute blood loss anemia Traumatic rupture of ligament of right wrist (~2017) HSV-2 infection (~2011) Asthma (~2008) Ovarian cyst (~2017) Vaginal odor Anxiety (~2018) Migraine (~2016) Depression (~2007) Surgical History (Updated 05/30/23 @ 11:12 by Nicki Dumont RN) Anesthesia History of hand surgery (~2011) History of vaginal delivery Family History Father Hypertension Mother Hypertension Grandmother Breast cancer Diabetes mellitus Grandfather Family history unknown Grandmother Family history unknown Grandfather Family history unknown Sister Kidney transplant recipient Addiction to drug alcohol intake frequency: holidays/special occasions only Substance Use Type: does not use Exam <Dawit Jung PA-C - Last Filed: 07/11/23 16:56> Narrative Exam Narrative: GENERAL: Well-developed patient, in mild distress. HEAD: Atraumatic. Normocephalic. EYES: Pupils equal round and reactive. Extraocular motions intact. No scleral icterus. No injection or drainage. ENT: Nose without bleeding, purulent drainage. Throat without erythema, tonsillar hypertrophy or exudate. Airway patent. NECK: Trachea midline. Non tender CARDIOVASCULAR: Regular rate and rhythm without murmurs, gallops, or rubs. RESPIRATORY: Clear to auscultation. Breath sounds equal bilaterally. No wheezes, rales, or rhonchi. GASTROINTESTINAL: Abdomen soft, non-tender, nondistended. EXTREMITIES: No edema or joint tenderness. BACK: Mild left-sided CVA tenderness to palpation NEURO: AOx3. SKIN: No rash or erythema of visible areas Initial Vital Signs Initial Vital Signs: Vital Signs Temperature 98.4 F 07/11/23 15:18 Pulse Rate 90 07/11/23 15:18 Respiratory Rate 18 07/11/23 15:18 Blood Pressure 120/69 07/11/23 15:18 Pulse Oximetry 100 07/11/23 15:18 Oxygen Delivery Method Room Air 07/11/23 15:18 <Aleksandra Bowen DO - Last Filed: 07/12/23 07:58> Initial Vital Signs Initial Vital Signs: Vital Signs Temperature 98.4 F 07/11/23 15:18 Pulse Rate 90 07/11/23 15:18 Respiratory Rate 18 07/11/23 15:18 Blood Pressure 120/69 07/11/23 15:18 Pulse Oximetry 100 07/11/23 15:18 Oxygen Delivery Method Room Air 07/11/23 15:18 Course <Dawit Jung PA-C - Last Filed: 07/11/23 16:56> Orders Ordered: ED Orders 07/11/23 15:25 Urine Culture Stat Urine Microscopic Stat Vital Signs Vital signs: Vital Signs - 8 hr 07/11/23 15:18 07/11/23 16:09 Temperature 98.4 F 97.6 F Pulse Rate 90 85 Respiratory Rate 18 12 Blood Pressure 120/69 98/55 L Pulse Oximetry 100 100 Oxygen Delivery Method Room Air <Aleksandra Bowen DO - Last Filed: 07/12/23 07:58> Orders Ordered: ED Orders 07/11/23 15:25 Urine Culture Stat Urine Microscopic Stat Vital Signs Vital signs: Vital Signs - 8 hr 07/11/23 15:18 07/11/23 16:09 Temperature 98.4 F 97.6 F Pulse Rate 90 85 Respiratory Rate 18 12 Blood Pressure 120/69 98/55 L Pulse Oximetry 100 100 Oxygen Delivery Method Room Air MDM - Female Genitourinary <PATY Gordon Last Filed: 07/11/23 16:56> Lab Data Labs: Lab Results 07/11/23 Range/Units 15:25 Urine RBC None seen (0-5/HPF) Urine WBC 10-30/hpf H (0-5/HPF) Ur Squamous Epith Cells 5-10 /hpf H (0-5/HPF) Urine Bacteria Many (>30) H (None) WBC Casts 0-1/lpf (None) Ur Culture Indicated? Specimen cultured Point of Care Testing Test Results Positive Urine Dip Bedside Urine Glucose Negative Bedside Urine Bilirubin - Negative Bedside Urine Ketone - Negative Urine Specific [place] 1.010 Bedside Urine Occult Blood +/- Bedside Urine pH 6.0 Bedside Urine Protein - Negative Bedside Urine Urobilinogen - Negative Bedside Urine Nitrite - Negative Bedside Urine Leukocytes +++ 500 Esterase MDM Narrative Medical decision making narrative: MDM * differential diagnosis includes but not limited to UTI, gonorrhea, chlamydia, pyelonephritis * Prior records reviewed: Patient was seen here 2 years ago due to acute left flank pain. Extensive history of UTIs. CT scan was unremarkable. Urine was unremarkable. Referral to Urology. * My lab interpretation: UA shows evidence of UTI * My imgaing interpretation: None obtained * Clinical Decision Rules/Scores evaluated: None * Independent discussions with: None ED Course: This is a 27-year-old female presents to the emergency department due to 2 days of UTI symptoms with a concern for ascending infection as she reports left flank pain. Patient is 12 weeks so we will treat with cefpodoxime. Encouraged routine follow up with the relish maker Shared Decision Making: Discussed plan with the patient was comfortable with the plan. Social Considerations: None Disposition: Discharged to home <Aleksandra Bowen DO - Last Filed: 07/12/23 07:58> Lab Data Labs: Lab Results 07/11/23 Range/Units 15:25 Urine RBC None seen (0-5/HPF) Urine WBC 10-30/hpf H (0-5/HPF) Ur Squamous Epith Cells 5-10 /hpf H (0-5/HPF) Urine Bacteria Many (>30) H (None) WBC Casts 0-1/lpf (None) Ur Culture Indicated? Specimen cultured Point of Care Testing Test Results Positive Urine Dip Bedside Urine Glucose Negative Bedside Urine Bilirubin - Negative Bedside Urine Ketone - Negative Urine Specific [place] 1.010 Bedside Urine Occult Blood +/- Bedside Urine pH 6.0 Bedside Urine Protein - Negative Bedside Urine Urobilinogen - Negative Bedside Urine Nitrite - Negative Bedside Urine Leukocytes +++ 500 Esterase Discharge Plan Departure Patient Disposition: Home Clinical Impression: Urinary tract infection Instructions: DI for Urinary Tract Infection (UTI) Activity Restrictions/Additional Instructions: Thank you for coming to the [facility] Emergency Department today. Your urinalysis shows evidence of UTI. Please take the oral antibiotics as prescribed. I hope you feel better soon. Please follow up with your primary care provider within a week if your symptoms continue. If you do not have a primary care provider please contact the [facility] Resource line at [phone]. They will ask some questions about your medical history and help you get set up with a provider in the community. Prescriptions: New cefpodoxime 200 mg tablet 200 mg PO BID 10 Days Qty: 20 0RF Rx Instructions: must administer with a meal/food No Action magnesium oxide 500 mg capsule 500 mg PO DAILY Saccharomyces boulardii [Daily Probiotic (S. boulardii)] 250 mg capsule 250 mg PO DAILY quetiapine 25 mg tablet See Rx Instructions .ROUTE .COMPLEX Qty: 270 3RF Dose Instruction: take 3 tablets by mouth at bedtime Rx Instructions: take 3 tablets by mouth at bedtime. Please call for appointment with escitalopram oxalate 20 mg tablet See Rx Instructions .ROUTE .COMPLEX Qty: 90 0RF Dose Instruction: take 1 tablet by mouth once daily Rx Instructions: take 1 tablet by mouth once daily vit-ferrous sulfat-FA 27 mg iron- 0.8 mg tablet PO Referrals: Lita Neal MD [Primary Care Provider] - Stand Alone Forms: Patient Portal/API ED Sign-out <Aleksandra Bowen DO - Last Filed: 07/12/23 07:58> Cosign ED Attending [place] Attestation: I was available for consultation.
== END 2023-07-11 16:59 | disposition home or self-care (01) ==
PROVIDERS: Emergency Medicine; Emergency Provider Physician Assistant Medical; PCP Family Medicine
DX: O23.41 Unspecified infection of urinary tract in pregnancy, first trimester (principal); N39.0 Urinary tract infection, site not specified; Z3A.12 12 weeks gestation of pregnancy
CPT/HCPCS: 81003; 81015; 81025; 87077; 87086; 87147; 99282

== ENCOUNTER → 2023-07-21 10:47 | Outpatient (CLI) | payer OTHER, MEDICAID, SELFPAY | PROVIDERS: PCP Family Medicine; Visit Provider Family Medicine | DX: R39.9 Unspecified symptoms and signs involving the genitourinary system (principal) | CPT/HCPCS: 87077; 87086 ==

== ENCOUNTER → 2023-08-04 15:56 | Outpatient (CLI) | payer OTHER, MEDICAID, SELFPAY ==
[2023-08-04 17:58] LABS: Appearance Urine UA CLEAR; Bilirubin Urine UA NEGATIVE (NEGATIVE); Color Urine UA YELLOW; Glucose Urine UA NEGATIVE (Negative); Ketones Urine UA NEGATIVE (NEGATIVE); Leukocyte Esterase Urine UA NEGATIVE (NEGATIVE); Nitrite Urine UA NEGATIVE (Negative); Occult Blood Urine UA NEGATIVE (Negative); Protein Urine UA NEGATIVE (Negative); Specific Gravity Urine UA 1.015 (1.000-1.035); Urobilinogen Urine UA 0.2 E.U./dL (0.2)
[2023-08-04 18:14] LABS: RBC Urine None Seen (0-5/HPF); WBC Urine 0-1/HPF (0-5/HPF); pH Urine UA 7.5 (4.5-8.0)
[2023-08-04 18:15] LABS: Amorphous Sediment Urine 2+; Bacteria Urine Few (2-10); Culture Indicated Urine Cult Not Indicated; Mucus Urine 1+ (Negative); Squamous Epithelial Cell Urine 0-1 /HPF (0-5/HPF)
== END ==
LOC: LAB 15:57
PROVIDERS: PCP Family Medicine; Referring Provider Family Medicine; Visit Provider Family Medicine
DX: R30.0 Dysuria (principal)
CPT/HCPCS: 81001

== ENCOUNTER → 2023-09-08 15:10 | Outpatient (CLI) | payer OTHER, MEDICAID, SELFPAY ==
--- NOTE | 2023-09-08 15:12 | DI.US.S_ITS ---
PROCEDURE: US OB >= 14 WEEKS FETUS INDICATIONS: growth OUTSIDE/PRIOR DATING DATA: Last menstrual period (LMP): 04/09/2023. LMP-based estimated date of delivery (ALAINA): 01/15/2024. First dating scan (date and location): 06/14/2023. Estimated date of delivery (ALAINA) from first dating scan: 01/24/2024. TECHNIQUE: Real-time scanning was performed of the fetus, with image documentation and biometric measurements. Endovaginal scanning also done COMPARISON: [facility], OB >= 14 WEEKS FETUS, 09/10/2021, 8:31. FINDINGS: General: A single living intrauterine gestation is present. Presentation: Variable. Placenta: Placental position is posterior , without previa. Inferior placental edge is now at 2.1 cm from the internal os on transvaginal scanning Amniotic fluid index: 10.9 cm, normal range is 5-24 cm. Single deepest vertical pocket is 3 cm. heart rate: 149 beats per minute. Maternal cervical canal: 4.8 cm long. Normal lower limit is 2.5 cm. biometrics: Biparietal diameter: 5.1 cm, 21 weeks and 3 days Head circumference: 18.5 cm, 20 weeks and 6 days Abdominal circumference: 16.8 cm, 21 weeks and 5 days Femur length: 3.4 cm, 20 weeks and 4 days Clinically estimated gestational age: 20 weeks and 2 days Composite gestational age from present scan: 21 weeks and 1 day Estimated weight and percentile: 90 percentile, 406 g Anatomic survey: Neuro: Ventricles are non-dilated at less than 10 mm. Cisterna magna is normal at 3-11 mm. Cerebellum is normal in size and morphology. There is a choroid plexus cyst on the right measuring 0.4 cm. Nuchal skin fold: Normal at less than 6 mm between 14-21 weeks gestational age. Face: Nose and lips, facial profile are normal. Spine: No evidence for spina bifida. Heart: 4-chambered heart is present, with normal ventricular outflow tracts. Diaphragm: Diaphragm is intact. Stomach: Left-sided stomach is present. Kidneys: No hydronephrosis. Normal is less than 5 mm in 2nd trimester, less than 7 mm in 3rd trimester. Cord: 3-vessel cord has orthotopic insertion. Bladder: Normal in size. Extremities: All 4 extremities identified. IMPRESSION: Living intrauterine gestation at 20 weeks and 2 days. EFW at the 90th percentile, 406 g, at the upper limit of normal. Nonspecific right choroid plexus cyst measuring 0.4 cm. Otherwise routine anatomic survey has no significant abnormalities. On transvaginal imaging, the placental edge is 2.1 cm from the internal os, not considered low lying. Consider follow-up if clinically indicated. Normal fluid. Dictated by: Juwan Gonzalez M.D. on 09/08/2023 at 16:49 Approved by: Juwan Gonzalez M.D. on 09/08/2023 at 16:55
== END ==
PROVIDERS: PCP Family Medicine; Referring Provider Family Medicine; Visit Provider Family Medicine
DX: Z34.82 Encounter for supervision of other normal pregnancy, second trimester (principal); Z3A.20 20 weeks gestation of pregnancy
CPT/HCPCS: 76811

== ENCOUNTER → 2023-10-25 11:00 | Outpatient (CLI) | payer OTHER, SELFPAY ==
[2023-10-25 12:54] LABS: Add Manual Diff / Slide Review NO; Basophils Absolute Auto 0 /uL (0-100); Basophils Percent Auto 0.3 % (0-2); Eosinophils Absolute Auto 100 /uL (0-450); Eosinophils Percent Auto 1.1 % (2-4); Hematocrit 34.7 % (36-46); Hemoglobin 12.1 g/dL (12.0-16.0); Lymphocytes Absolute Auto 1500 /uL (1100-4500); Lymphocytes Percent Auto 22.1 % (25-40); Mean Corpuscular HGB Conc 34.8 % (30-36); Mean Corpuscular Hemoglobin 31.6 PG (26-34); Mean Corpuscular Volume 90.8 fL (80-100); Monocytes Absolute Auto 200 /uL (0-900); Monocytes Percent Auto 3.2 % (3-14); Neutrophils Absolute Auto 4900 /uL (1500-7000); Neutrophils Percent Auto 73.3 % (50-75); Platelet Count 226 X10^3/uL (150-400); Red Blood Cell Count 3.82 X10^6/uL (4.0-5.2); Red Cell Distribution Width 13.2 % (11.6-14.8); White Blood Cell Count 6.7 X10^3/uL (4.5-11.0)
[2023-10-25 13:28] LABS: GTT (PREG) 1 Hour PP 50gm Dose 105 mg/dL (76-139)
== END ==
LOC: LAB 11:03
PROVIDERS: PCP Family Medicine; Referring Provider Family Medicine; Visit Provider Family Medicine
DX: Z34.80 Encounter for supervision of other normal pregnancy, unspecified trimester (principal)
CPT/HCPCS: 82950; 85025; 86850

== ENCOUNTER → 2023-11-09 11:05 | Outpatient (CLI) | payer OTHER, SELFPAY | PROVIDERS: PCP Family Medicine; Visit Provider Family Medicine | DX: J02.9 Acute pharyngitis, unspecified (principal); N39.0 Urinary tract infection, site not specified | CPT/HCPCS: 87070; 87086 ==

== ENCOUNTER → 2023-11-28 11:17 | Outpatient (CLI) | payer OTHER, SELFPAY ==
--- NOTE | 2023-11-28 11:18 | DI.US.S_ITS ---
PROCEDURE: US OB LIMITED INDICATIONS: Growth OUTSIDE/PRIOR DATING DATA: Last menstrual period (LMP): 04/09/2023. LMP-based estimated date of delivery (ALAINA): 01/15/2024. First dating scan (date and location): 06/14/2023. Estimated date of delivery (ALAINA) from first dating scan: 01/24/2024. The calculations are made using the ultrasound ALAINA of 01/24/2024. TECHNIQUE: Real-time scanning was performed of the fetus, with image documentation and biometric measurements. COMPARISON: [facility], OB LIMITED, 10/11/2021, 8:07. [facility], OB >= 14 WEEKS FETUS, 09/08/2023, 15:23. FINDINGS: General: A single living intrauterine gestation is present. Presentation: Vertex. Placenta: Placental position is posterior , without previa. Amniotic fluid index: 14 cm, normal range is 5-24 cm. Single deepest vertical pocket is 4.1 cm. heart rate: 128 beats per minute. Maternal cervical canal: 2.5 cm long. Normal lower limit is 2.5 cm. biometrics: Biparietal diameter: 8.2 cm 32 weeks 6 days Head circumference: 32.7 cm 35 weeks 4 days Abdominal circumference: 20.2 cm 32 weeks 2 days Femur length: 6.1 cm 31 weeks 4 days Clinically estimated gestational age: 31 weeks 6 days Composite gestational age from present scan: 33 weeks 1 day Estimated weight and percentile: 1875 g, 58th percentile Other: Previous appearance of choroid plexus cyst is no longer visualized. IMPRESSION: Single live intrauterine with gestational age today of 33 weeks 1 day. Previous choroid plexus is no longer visualized. We strive to produce accurate, complete, and clear reports of imaging services. To assist us in improving patient care, this report was composed using standard report templates and voice recognition software. Therefore, it may contain abnormal punctuation, insertions and/or omissions. Occasional wrong-word or sound-alike substitutions may occur. Though we review the report and make efforts to correct it, we do recommend that the report be read carefully in proper context to recognize any text inaccuracies. Dictated by: Helena Vizcaino M.D. on 11/28/2023 at 22:07 Approved by: Helena Vizcaino M.D. on 11/28/2023 at 22:08
== END ==
LOC: US 11:17
PROVIDERS: PCP Family Medicine; Referring Provider Family Medicine; Visit Provider Family Medicine
DX: Z34.83 Encounter for supervision of other normal pregnancy, third trimester (principal); Z3A.33 33 weeks gestation of pregnancy
CPT/HCPCS: 76815

== ENCOUNTER → 2023-12-22 11:29 | Outpatient (CLI) | payer OTHER, SELFPAY ==
[2023-12-22 15:41] LABS: Urine Chlamydia NOT DETECTED; Urine N gonorrhoeae NOT DETECTED
== END ==
PROVIDERS: PCP Family Medicine; Referring Provider Family Medicine; Visit Provider Family Medicine
DX: Z20.2 Contact with and (suspected) exposure to infections with a predominantly sexual mode of transmission (principal)
CPT/HCPCS: 87491; 87591

== ENCOUNTER → 2023-12-22 14:04 | Outpatient (CLI) | payer OTHER, SELFPAY ==
[2023-12-22 19:40] LABS: Hepatitis B Surface Antigen NEGATIVE s/c (NEGATIVE)
[2023-12-22 19:47] LABS: HIV 1 & 2 Ab/Ag 4th Gen Combo NEGATIVE (NEGATIVE)
[2023-12-26 07:22] LABS: RPR Screen Non Reactive (Non Reactive)
== END ==
PROVIDERS: PCP Family Medicine; Referring Provider Family Medicine; Visit Provider Family Medicine
DX: Z20.2 Contact with and (suspected) exposure to infections with a predominantly sexual mode of transmission (principal)
CPT/HCPCS: 36415; 86592; 87340; 87389; 87491; 87591

== ENCOUNTER → 2024-01-05 15:55 | Outpatient (CLI) | payer OTHER, SELFPAY ==
[2024-01-06 22:06] LABS: Strep Grp B PCR NEG for Grp B Strep
== END ==
PROVIDERS: PCP Family Medicine; Visit Provider Family Medicine
DX: Z34.80 Encounter for supervision of other normal pregnancy, unspecified trimester (principal)
CPT/HCPCS: 87653

== ENCOUNTER 2024-01-19 02:46 | Outpatient (CLI) | payer OTHER, SELFPAY ==
[2024-01-19] MEDS: ONDANSETRON 4 MG ODT SL (04:40)
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
== END 2024-01-19 04:42 | disposition home or self-care (01) ==
LOC: OB 01-22 10:26
PROVIDERS: PCP Family Medicine; Referring Provider Specialist; Visit Provider Specialist
DX: O47.1 False labor at or after 37 completed weeks of gestation (principal); Z3A.39 39 weeks gestation of pregnancy
CPT/HCPCS: 59025; G0378; G0379

== ENCOUNTER 2024-01-22 06:06 | Inpatient (IN) | payer OTHER, SELFPAY ==
[2024-01-22 07:17] LABS: Add Manual Diff / Slide Review NO; Basophils Absolute Auto 100 /uL (0-100); Basophils Percent Auto 0.6 % (0-2); Eosinophils Absolute Auto 100 /uL (0-450); Eosinophils Percent Auto 0.4 % (2-4); Hematocrit 36.9 % (36-46); Hemoglobin 12.6 g/dL (12.0-16.0); Lymphocytes Absolute Auto 2300 /uL (1100-4500); Lymphocytes Percent Auto 17.8 % (25-40); Mean Corpuscular HGB Conc 34.3 % (30-36); Mean Corpuscular Hemoglobin 31.1 PG (26-34); Mean Corpuscular Volume 90.7 fL (80-100); Monocytes Absolute Auto 800 /uL (0-900); Neutrophils Absolute Auto 9600 /uL (1500-7000); Neutrophils Percent Auto 75.2 % (50-75); Platelet Count 243 X10^3/uL (150-400); Red Blood Cell Count 4.06 X10^6/uL (4.0-5.2); Red Cell Distribution Width 13.1 % (11.6-14.8); White Blood Cell Count 12.8 X10^3/uL (4.5-11.0)
[2024-01-22] MEDS: LACTATED RINGERS 1,000 ML 100 ML IV ×2 (07:20→08:28)
[2024-01-22] MEDS: ONDANSETRON 4 MG/2 ML INJ IV (07:35)
--- NOTE | 2024-01-22 08:13 | P.PCN_ITS ---
Regional Block Pre-procedure Procedure: Continuous Lumbar Epidural for L&D (with CSE) Attending OB provider: Lita Neal PMH/ROS narrative: 28yo G4 female in labor requesting epidural. See pre-anesthesia evaluation for more details. ASA Class: II Labs: Hct 36.9 % (36-46) 01/22/24 07:00 Plt Count 243 X10^3/uL (150-400) 01/22/24 07:00 Medications: Current Medications Generic Name Dose Route Start Last Admin Trade Name Freq PRN Reason Stop Dose Admin Carboprost Tromethamine 250 mcg 01/22/24 06:33 Carboprost 250 Mcg/Ml Ampul IM Q90M PRN Bleeding Diphenhydramine HCl 25 mg 01/22/24 07:20 Diphenhydramine 50 Mg/Ml Vial IV Q10M PRN Pruritis Ephedrine Sulfate 10 mg 01/22/24 08:11 Ephedrine 50 Mg/Ml Vial IV Q5M PRN Blood pressure decrease more than 20% of baseline. Lactated Ringer's 1,000 mls @ 100 mls/hr 01/22/24 06:45 Lactated Ringers IV CONT SOURAV Oxytocin/Lactated Ringer's 30 unit in 500 mls @ 200 mls/hr 01/22/24 06:33 Oxytocin Premix IV CONT PRN Bleeding Protocol Tranexamic Acid 1,000 mg/ 100 mls @ 600 mls/hr 01/22/24 06:33 Sodium Chloride IV NOW PRN Bleeding FENT 2MCG/ML BUPIV 0.125% EPI 200 mcg in 100 mls @ 6 mls/hr 01/22/24 07:30 Fentanyl/Bupiv/Ns 2mcg/Ml - 0.125% EPIDURAL CONT SOURAV Lidocaine HCl 20 ml 01/22/24 06:33 Lidocaine 1% 20 Ml INJ INTRA-OP PRN Post Delivery Methylergonovine Maleate 0.2 mg 01/22/24 06:33 Methylergonovine 0.2 Mg Tablet PO Q6HR PRN Heavy Bleeding Methylergonovine Maleate 0.2 mg 01/22/24 06:33 Methylergonovine 0.2 Mg/Ml Vial IM NOW PRN Bleeding Misoprostol 800 mcg 01/22/24 06:33 Misoprostol 200 Mcg Tablet MS NOW PRN Bleeding Misoprostol 400 mcg 07/08/24 06:33 Misoprostol 200 Mcg Tablet SL NOW PRN Bleeding Nalbuphine HCl 2.5 mg 01/22/24 07:20 Nalbuphine 20 Mg/Ml Ampul IV Q10M PRN Pruritis Naloxone HCl 0.2 mg 01/22/24 06:33 Naloxone 0.4 Mg/Ml Vial IV Q2MIN PRN Opiate Reversal Ondansetron HCl 4 mg 01/22/24 06:33 Ondansetron 4 Mg/2 Ml Inj IV Q4HR PRN Nausea And Vomiting Oxytocin 10 unit 01/22/24 06:33 Oxytocin 10 Unit/Ml Vial IM NOW PRN Bleeding Allergies: Allergies Allergy/AdvReac Type Severity Reaction Status Date / Time miconazole [From MONISTAT 3] Allergy Intermediate Verified 01/19/24 10:42 shrimp [SHRIMP] Allergy Intermediate hives Verified 01/19/24 10:42 Sulfa (Sulfonamide AdvReac Severe VOMITING/DANIEL Verified 01/19/24 10:42 Antibiotics) meloxicam [MELOXICAM] AdvReac Intermediate Verified 01/19/24 10:42 adhesive tape AdvReac Mild ITCHING Verified 01/19/24 10:42 Procedure Insertion date: 01/22/24 Insertion time: 07:47 Prep/Local: 1% lidocaine (Chloraprep) Interspace: L3-4 Patient position: sitting Needle: 18 gauge Breakout Commercetead (27g 5 Pencan needle for CSE) Loss of resistance with: saline FABRICIO at (cm): 7 Catheter placed at SKIN (cm): 14 Catheter in SPACE (cm): 7 Insertion: Yes CSF, No Blood, Yes Paresthesia with insertion, No Paresthesia with injection and No Test dose reaction Initial Medications TEST DOSE time: 07:49 TEST DOSE: 1.5% lidocaine with epinephrine 1:200k (mL): 3 BOLUS DOSE time: 08:03 BOLUS DOSE med: other (Intrathecal 0.75% Marcaine in dextrose at 07:47. While setting up epidural infusion, pt continues to report 8/10 pain. Loss of sensation BLE and lower L abdomen; pt reports pain B lower abdomen. Additional bolus of 2 ml 1.5% lido plus epi and 5 ml epidural infusion given at 08:03.) Infusion INFUSION: 0.125% bupivacaine and with fentanyl 2 mcg/mL Initial rate (mL/hr): 8 Subsequent interventions: 08:22 - 0/10 contraction pain, smiling, able to move BLE. KR Post-procedure Anesthesia date START: 01/22/24 Anesthesia time START: 07:38 Anesthesia date END: 01/22/24 Anesthesia time END: 10:59 Post-procedure Anesthesia Assessment: Yes CV function: HR/BP stable, Yes Resp function: RR/sat/airway adequate, Yes Post-op hydration adequate, Yes Pain control adequate, Yes Nausea & vomiting absent, Yes Temperature > 36 C, Yes Mental status appropriate and No Anesthesia complications
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
[2024-01-22] MEDS: METHYLERGONOVINE 0.2 MG/ML VIAL IM (11:31)
--- NOTE | 2024-01-22 11:43 | P.PCNOB_ITS ---
Labor & Delivery Delivery date: 01/22/24 Cervical ripening method: none Induction method: none Delivery monitor: external FHT and external uterine Route of delivery: Episiotomy description: None L&D Laceration Description: None Quantitative Blood Loss: 492 Anesthesia Type: Epidural Complications: None Narrative: PROCEDURE: at 39w5d presented in active labor and was admitted to Labor and Delivery. The patient progressed through the 1st stage over 7 hours. SROM occured at 10:07 with clear fluid. Pain was controlled with an epidural. The patient progressed through the 2nd stage over 24 minutes and delivered a viable male infant with APGARs 9/10 at 10:59 via without complications. The cord was cut and clamped after it stopped pulsating. The placenta delivered with gentle cord traction, and appeared complete. The perineum and vagina were inspected with no lacerations. Needle and sponge counts were correct.? The vagina was inspected and no items were left in situ. Emi was doing well with Valentin, her and her partner, Joshua, at bedside. PREPROCEDURE DIAGNOSIS: Intrauterine at 39w5d Anorexia nervosa Anxiety/depression Hx of HSV Recurrent UTI GBS negative RH negative POSTPROCEDURE DIAGNOSIS: Intrauterine at 39w5d, delivered Same as preprocedure [place] Baby 1: gender: Male Presentation: vertex Position: Left Occiput Anterior Placenta delivery description: Spontaneous Cord Vessel Description: 3 Vessels score (1 min): 9 score (5 min): 10 weight: 8 lb 2.196 oz Plan for aftercare: Routine care
[2024-01-22] MEDS: TRANEXAMIC ACID 1,000 MG in SODIUM CHLORIDE 0.9% 100 ML 600 MG IV (11:54)
[2024-01-22] MEDS: ACETAMINOPHEN 325 MG TABLET 650 MG PO ×3 (12:23→22:27)
[2024-01-22] MEDS: IBUPROFEN 600 MG TABLET PO ×3 (12:23→22:26)
[2024-01-22] MEDS: DERMOPLAST SPRAY 20% 60 ML 1 SPRAY TOP (12:24)
[2024-01-22] MEDS: QUETIAPINE 25 MG TABLET 75 MG PO (22:26)
[2024-01-22] MEDS: ESCITALOPRAM 10 MG TABLET 30 MG PO (22:55)
[2024-01-23] MEDS: ACETAMINOPHEN 325 MG TABLET 650 MG PO ×2 (06:02→11:49)
[2024-01-23] MEDS: IBUPROFEN 600 MG TABLET PO ×2 (06:02→11:49)
[2024-01-23 07:00] VITALS: BP 118/81; PULSE 92; RESP 118; TEMP 36.8
--- NOTE | 2024-01-23 08:52 | P.DS_ITS ---
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 She had an epidural for pain control. She progressed to complete and had an uncomplicated of a viable baby boy. There were no lacerations. , there were no complications. At the time of discharge she was voiding, ambulating, and passing flatus without difficulty. Her lochia was decreasing appropriately. Her pain was well controlled. She was with good latch. She will f/u in 6 weeks for check. She would like to use natural methods for contraception. Peripartum Data Delivery Method: Natural Vaginal Laceration Description: None Episiotomy description: None Procedures: Spontaneous vaginal delivery complications: none 1: Gender: Male Disposition of : home Time Spent with Patient Time attestation: Total time spent providing and/or coordinating discharge services: Objective Labs 01/22/24 07:00 Exam Narrative Exam Narrative: Gen: NAD, sitting comfortably in bed, appears well CV: RRR, no murmurs Resp: clear to auscultation bilaterally Abd: soft, appropriately tender, fundus firm and below the umbilicus, nondistended Ext: no edema Discharge Plan Discharge Plan Patient Disposition: Home Discharge orders & Medications Prescriptions: New acetaminophen 325 mg Tablet 650 mg PO Q6HR PRN (Reason: Pain, Mild (1-3)) Qty: 30 0RF docusate sodium 100 mg Capsule 100 mg PO DAILY Qty: 30 0RF ibuprofen 600 mg Tablet 600 mg PO Q6HR PRN (Reason: Pain, Mild (1-3)) Qty: 30 0RF Continued magnesium oxide 500 mg capsule 500 mg PO DAILY quetiapine 25 mg tablet See Rx Instructions .ROUTE .COMPLEX Qty: 270 3RF Dose Instruction: take 3 tablets by mouth at bedtime Rx Instructions: take 3 tablets by mouth at bedtime. Please call for appointment with cephalexin 250 mg tablet 125 mg PO DAILY Qty: 90 2RF escitalopram oxalate 20 mg tablet 30 mg PO DAILY Qty: 135 0RF vit-ferrous sulfat-FA 27 mg iron- 0.8 mg tablet PO Discontinued ondansetron 4 mg tablet,disintegrating 4 mg PO Q8H PRN (Reason: nausea and vomiting) Qty: 20 0RF valacyclovir 500 mg tablet 500 mg PO BID Qty: 60 0RF Follow up/Referrals: Lita Neal MD [Primary Care Provider] - 6 Weeks (Appointment with , on Monday, March 05 at 11:30 am.) Diet/Activity/Treatments Diet: Diet as Tolerated and Regular Skin/Wound/Dressing Care Report to your healthcare provider any signs of infection, such as:: chills, fever, increased pain and unusual drainage Visit Report/Discharge Packet Instructions: DI for Labor and Delivery, Vaginal Stand Alone Forms: Patient Portal/API, Stroke Signs & Symptoms Discharge Data Primary Care Provider: Lita Neal Discharges patient from system. Discharge Date/Time: 01/23/24 12:40
[2024-01-23] MEDS: ESCITALOPRAM 10 MG TABLET 30 MG PO (09:00)
[2024-01-23] MEDS: PRENATAL VIT,CALC/IRON/FOLIC 1 TABLET 1 TAB PO (09:07)
[2024-01-23] MEDS: DOCUSATE 100 MG CAPSULE PO (09:08)
[2024-01-23] MEDS: MEASLES,MUMPS,RUBELLA VACC/PF 0.5 ML VIAL SUBCUT (11:50)
== END 2024-01-23 12:40 | disposition home or self-care (01) | DRG 806 ==
PROVIDERS: Admitting Provider Family Medicine; PCP Family Medicine; Referring Provider Family Medicine; Visit Provider Family Medicine
DX: O98.52 Other viral diseases complicating childbirth (principal); O47.1 False labor at or after 37 completed weeks of gestation; Z37.0 Single live birth; B00.9 Herpesviral infection, unspecified; Z3A.39 39 weeks gestation of pregnancy
CPT/HCPCS: 59025; 59050; 59410; 84112; 85025; 86850; 86900; 86901; G0379; J2210; J2405

== ENCOUNTER → 2024-05-29 13:46 | Outpatient (CLI) | payer OTHER, SELFPAY ==
[2024-05-29 14:16] LABS: Appearance Urine UA CLEAR; Bilirubin Urine UA NEGATIVE (NEGATIVE); Color Urine UA YELLOW; Glucose Urine UA NEGATIVE (Negative); Ketones Urine UA NEGATIVE (NEGATIVE); Leukocyte Esterase Urine UA 1+ (NEGATIVE); Nitrite Urine UA NEGATIVE (Negative); Occult Blood Urine UA TRACE-INTACT (Negative); Protein Urine UA NEGATIVE (Negative); Urobilinogen Urine UA 0.2 E.U./dL (0.2)
[2024-05-29 14:22] LABS: Bacteria Urine None Seen; RBC Urine None Seen (0-5/HPF); Squamous Epithelial Cell Urine 1-5 /HPF (0-5/HPF); Urine Volume 10mL (spun); WBC Urine 1-5/HPF (0-5/HPF)
[2024-05-29 14:23] LABS: Culture Indicated Urine Specimen Cultured
== END ==
PROVIDERS: PCP Family Medicine; Referring Provider Family Medicine; Visit Provider Family Medicine
DX: N30.00 Acute cystitis without hematuria (principal)
CPT/HCPCS: 81001; 87086

== ENCOUNTER → 2024-06-01 16:53 | Outpatient (CLI) | payer OTHER, SELFPAY | PROVIDERS: PCP Family Medicine; Visit Provider Nurse Practitioner Family | DX: R30.0 Dysuria (principal) | CPT/HCPCS: 87077; 87086; 87186 ==

== ENCOUNTER → 2024-12-11 15:23 | Outpatient (CLI) | payer OTHER, SELFPAY ==
[2024-12-11 18:29] LABS: Appearance Urine UA CLEAR; Bilirubin Urine UA NEGATIVE (NEGATIVE); Color Urine UA YELLOW; Glucose Urine UA NEGATIVE (Negative); Ketones Urine UA NEGATIVE (NEGATIVE); Leukocyte Esterase Urine UA NEGATIVE (NEGATIVE); Nitrite Urine UA NEGATIVE (Negative); Occult Blood Urine UA NEGATIVE (Negative); Protein Urine UA NEGATIVE (Negative); Urobilinogen Urine UA 0.2 E.U./dL (0.2)
[2024-12-11 18:36] LABS: pH Urine UA 6.5 (4.5-8.0)
[2024-12-11 18:43] LABS: Follicle Stimulating Hormone 5.43 mIU/mL; Luteinizing Hormone 8.73 mIU/mL; Progesterone, Total 1.13 ng/mL
[2024-12-11 18:45] LABS: HCG Quantitative /Beta subunit < 2.39 mIU/mL
[2024-12-11 18:45] LABS: Bacteria Urine None Seen; Culture Indicated Urine Cult Not Indicated; RBC Urine None Seen (0-5/HPF); Squamous Epithelial Cell Urine 0-1 /HPF (0-5/HPF); Urine Volume 10mL (spun); WBC Urine 0-1/HPF (0-5/HPF)
[2024-12-11 18:58] LABS: Estradiol, Total 26.4 pg/mL
== END ==
PROVIDERS: PCP Family Medicine; Referring Provider Family Medicine; Visit Provider Family Medicine
DX: N91.2 Amenorrhea, unspecified (principal); R10.9 Unspecified abdominal pain
CPT/HCPCS: 36415; 81001; 82670; 83001; 83002; 84144; 84702

== ENCOUNTER 2025-03-31 13:31 | Emergency (ER) | payer OTHER, SELFPAY ==
[2025-03-31 13:36] VITALS: BP 122/64; PULSE 90; RESP 17; TEMP 36.9; O2SAT 100; BMI 25.9
[2025-03-31 14:01] LABS: Add Manual Diff / Slide Review NO; Hematocrit 35.9 % (36-46); Hemoglobin 12.3 g/dL (12.0-16.0); Lymphocytes Absolute Auto 1600 /uL (1100-4500); Mean Corpuscular HGB Conc 34.1 % (30-36); Mean Corpuscular Hemoglobin 29.8 PG (26-34); Mean Corpuscular Volume 87.3 fL (80-100); Platelet Count 283 X10^3/uL (150-400)
[2025-03-31 14:12] LABS: Alanine Aminotransferase 13 IU/L (<35); Albumin 4.7 g/dL (3.5-5.0); Albumin Globulin Ratio 1.6 (1.0-2.8); Alkaline Phosphatase 52 U/L (38-126); Blood Urea Nitrogen 9 mg/dL (7-17); Calcium 8.8 mg/dL (8.4-10.2); Carbon Dioxide 27 mmol/L (22-32); Chloride 103 mmol/L (98-107); Estimated Glomerular Filt Rate > 60 mL/min (>60); Globulin 2.9 g/dL (1.7-4.1); Glucose 64 mg/dL (70-99); HEMOLYSIS < 15 (0-50); Lipase 87 U/L (23-300); Potassium 3.4 mmol/L (3.4-5.1); Sodium 140 mmol/L (137-145); Total Protein 7.6 g/dL (6.3-8.2)
--- NOTE | 2025-03-31 14:27 | DI.CT.S_ITS ---
PROCEDURE: CT ABDOMEN PELVIS W CON INDICATIONS: Left flank pain TECHNIQUE: After the administration of intravenous contrast, axial sections acquired from the lung bases to the pubic symphysis. Coronal and sagittal reformats were performed. For radiation dose reduction, the following was used: automated exposure control, adjustment of mA and/or kV according to patient size. COMPARISON: None. FINDINGS: Image quality: Diagnostic. Lower Chest: No significant findings. ABDOMEN: Liver: No solid mass. Gallbladder: Diminutive, decompressed gallbladder without stones. Biliary ducts: No biliary dilation. Pancreas: No ductal dilation. Spleen: Size is within normal limits. Adrenal Glands: No adrenal nodules. Kidneys and Ureters: Symmetric enhancement. No nephrolithiasis or hydronephrosis. No visible mass or cyst requiring follow up. No proximal hydroureter. Distal ureters are decompressed and not well seen. Stomach and Bowel: Stomach and small bowel loops are normal caliber. Retrocecal appendix is minimally hyperemic. Normal to slightly increased quantity of solid stool present in the colon. No pericolonic inflammation.. Peritoneum: No abnormal intraperitoneal fluid. No free air. Ventral Wall: No significant ventral hernia. Abdominal Nodes: No retroperitoneal or mesenteric adenopathy by size criteria. Vessels: The abdominal aorta, IVC, and portal vein are of normal caliber. PELVIS: Pelvic Organs: Peripheral enhancement in the right ovary. Left ovary is not well defined on CT. Anteverted uterus. Bladder: No stones or wall thickening. Pelvic Nodes: No enlarged lymph nodes. Miscellaneous: No inguinal hernias are seen. Bones: No aggressive osseous abnormality. IMPRESSION: No CT evidence of acute pyelonephritis or urinary obstruction. Poor definition of the ovaries on CT. If there is concern for gynecologic etiology of symptoms, pelvic ultrasound is recommended. Dictated by: Brooke Bruner M.D. on 03/31/2025 at 15:09 Approved by: Brooke Bruner M.D. on 03/31/2025 at 15:17
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
[2025-03-31] MEDS: KETOROLAC 30 MG/ML VIAL 15 MG IV (15:08)
[2025-03-31] MEDS: ONDANSETRON 4 MG/2 ML INJ IV (15:08)
[2025-03-31 15:22] VITALS: BP 116/76; PULSE 67; RESP 18; O2SAT 98
[2025-03-31 15:40] VITALS: BP 116/71; PULSE 85; RESP 18; O2SAT 100
== END 2025-03-31 15:49 | disposition home or self-care (01) ==
PROVIDERS: Emergency Medicine; Emergency Provider Physician Assistant; PCP Family Medicine
DX: R10.12 Left upper quadrant pain (principal)
CPT/HCPCS: 36415; 74177; 80053; 81003; 81025; 82962; 83690; 85025; 96374; 96375; 99284; J1885; J2405; Q9967

== ENCOUNTER → 2025-04-11 11:55 | Outpatient (CLI) | payer OTHER, SELFPAY ==
[2025-04-11 13:03] LABS: Hemoglobin A1C% w Est Avg Glu 5.3 % (4.0-6.0)
[2025-04-11 13:27] LABS: Lipase 89 U/L (23-300)
[2025-04-13 11:13] LABS: Insulin Level Total 3.3 uIU/mL (2.6-24.9)
== END ==
PROVIDERS: PCP Family Medicine; Referring Provider Family Medicine; Visit Provider Family Medicine
DX: E16.2 Hypoglycemia, unspecified (principal); R10.9 Unspecified abdominal pain
CPT/HCPCS: 36415; 83036; 83525; 83690